=== PATIENT | female | born 1955 | race Hispanic/Latino ===

== ENCOUNTER 2017-01-09 15:11 | Inpatient (IN) | payer MEDICAID ==
--- NOTE | 2017-01-09 16:03 | ED PDOC ---
Arrival/HPI - General Chief Complaint: Lower Extremity Problem/Injury Time Seen by Provider: 01/09/17 15:18 Historian: Patient - History of Present Illness Time/Duration: Other (This morning) Symptom Onset: Gradual Symptom Course: Worsening Quality: Aching Severity Level: Moderate Activities at Onset: Rest Associated Symptoms (Text): 01/09/17 16:00 Patient complains of bilateral foot pain and difficulty ambulating since this morning. She denies injury or trauma. She lives at home alone. She does not have a home health aide. Mentally challenged. She denies chest pain palpitations or dyspnea. No abdominal pain nausea or vomiting. She is unable to ambulate. Past Medical History - Infectious Disease Hx of Infectious Diseases: None - Cardiac Hx Hypertension: Yes - Neurological Hx Vertigo: Yes - Psychiatric Hx Substance Use: No - Past Surgical History Past Surgical History: No Previous - Surgical History Hx Tonsillectomy: Yes - Anesthesia Hx Anesthesia: Yes Hx Anesthesia Reactions: No Hx Malignant Hyperthermia: No Family/Social History - Physician Review Nursing Documentation Reviewed: Yes Family/Social History: Unknown Family HX Smoking Status: Never Smoked Hx Alcohol Use: No Hx Substance Use: No Hx Substance Use Treatment: No Allergies/Home Meds Allergies/Adverse Reactions: Allergies egg Allergy (Verified 01/09/17 15:13) RASH Home Medications: Home Meds Medication Instructions Recorded Confirmed Amitriptyline [Elavil] 2 tab PO HS 05/25/16 05/25/16 Meclizine HCl [Motion Sickness 25 mg PO TID 05/25/16 05/25/16 Relief] Metoprolol Tartrate [Lopressor] 25 mg PO BID 05/25/16 05/25/16 Review of Systems - Physician Review All systems were reviewed & negative as marked: Yes - Review of Systems Constitutional: Fatigue. absent: Fevers Respiratory: absent: SOB, Cough, Wheezing Cardiovascular: absent: Chest Pain, Palpitations, Syncope Gastrointestinal: absent: Abdominal Pain, Diarrhea, Vomiting Genitourinary Female: absent: Dysuria, Frequency, Hematuria Neurological: absent: Headache, Dizziness Physical Exam Vital Signs Temp Pulse Resp BP Pulse Ox 01/09/17 16:50 106 H 18 121/66 98 01/09/17 15:24 99.0 F 121 H 18 159/112 H 100 Temperature: Afebrile Blood Pressure: Normal Pulse: Regular Respiratory Rate: Normal Appearance: Positive for: Well-Appearing, Non-Toxic, Uncomfortable Pain Distress: Mild Mental Status: Positive for: Alert and Oriented X 3 - Systems Exam Head: Present: Atraumatic, Normocephalic Pupils: Present: PERRL Extroacular Muscles: Present: EOMI Conjunctiva: Present: Normal Mouth: Present: Dry Pharnyx: No: ERYTHEMA, EXUDATE, TONSILS ENLARGED Neck: Present: Normal Range of Motion Respiratory/Chest: Present: Clear to Auscultation, Good Air Exchange, Decreased Breath Sounds. No: Respiratory Distress, Accessory Muscle Use Cardiovascular: Present: Regular Rate and Rhythm, Tachycardic Abdomen: Present: Normal Bowel Sounds. No: Tenderness, Distention, Peritoneal Signs, Rebound, Guarding Back: Present: Normal Inspection. No: CVA Tenderness, Midline Tenderness, Paraspinal Tenderness Upper Extremity: Present: Normal Inspection. No: Cyanosis, Edema Lower Extremity: Present: Normal Inspection, NORMAL PULSES, Tenderness, Neurovascularly Intact, Other (Bilateral plantar surface feet tenderness with no swelling or skin changes). No: Edema, CALF TENDERNESS, Cyanosis, Normal ROM , Swelling, Erythema, Deformity Neurological: Present: GCS=15, CN II-XII Intact, Speech Normal, Motor Func Grossly Intact Skin: Present: Warm, Dry, Normal Color, Other (Cracked dry skin). No: Rashes Psychiatric: Present: Alert, Oriented x 3, Normal Insight, Normal Concentration Medical Decision Making ED Course and Treatment: 01/09/17 16:03 EKG shows sinus tachycardia rate approximately 115 with a left bundle branch block and no old available for comparison 01/09/17 17:05 Discussed with , who accepts to his service. Resident has been called. - Lab Interpretations Lab Results: 01/09/17 15:30 01/09/17 16:20 Lab Results 01/09/17 16:20: Sodium 133, Potassium 4.0, Chloride 100, Carbon Dioxide 18 L, Anion Gap 18, BUN 30 H, Creatinine 1.7 H, Est GFR ( Amer) 37, Est GFR ( Non-Af Amer) 30, Random Glucose 216 H, Calcium 8.9, Total Bilirubin 1.6 H, AST 30, ALT 32, Alkaline Phosphatase 131 H, Lactate Dehydrogenase 537, Total Creatine Kinase 85, Troponin I 0.14 H*, Total Protein 7.9, Albumin 3.9, Globulin 4.0, Albumin/Globulin Ratio 1.0 L 01/09/17 15:30: PT 15.1 H, INR 1.38 H, APTT 34.3 01/09/17 15:30: WBC 10.3, RBC 4.74, Hgb 14.6, Hct 42.1, MCV 88.8, MCH 30.8, MCHC 34.7, RDW 13.9, Plt Count 283, MPV 10.5, Gran % 77.7 H, Lymph % (Auto) 11.9 L, [place] % (Auto) 9.9 H, Eos % (Auto) 0.3 L, Baso % (Auto) 0.2, Gran # 8.03 H, Lymph # 1.2, [place] # 1.0 H, Eos # 0.0, Baso # 0.02 - RAD Interpretation Radiology Orders: 01/09/17 15:36 FOOT LEFT 3 VIEWS ROUTINE [RAD] Stat FOOT RIGHT 3 VIEWS ROUTINE [RAD] Stat 01/09/17 15:37 CHEST TWO VIEWS (PA/LAT) [RAD] Stat - Medication Orders Current Medication Orders: Discontinued Medications Aspirin (Aspirin Chewable) 324 mg PO ONCE ONE Stop: 01/09/17 17:00 Disposition/Present on Arrival - Present on Arrival Any Indicators Present on Arrival: No History of DVT/PE: No History of Uncontrolled Diabetes: No Urinary Catheter: No History of Decub. Ulcer: No History Surgical Site Infection Following: None - Disposition Have Diagnosis and Disposition been Completed?: Yes Diagnosis: Elevated troponin, Unable to ambulate, Renal failure, Dehydration, Hyperglycemia Disposition: HOSPITALIZED Disposition Time: 17:00 Patient Plan: Admission, Telemetry Patient Problems: Current Active Problems Problem Status Onset Dehydration Acute Elevated troponin Acute Hyperglycemia Acute Renal failure Acute Unable to ambulate Acute Condition: SERIOUS Referrals: Jean-Paul Barber MD [Primary Care Provider] - Follow up with primary Forms: [employer] [facility] (Bulgarian)
[2017-01-09 16:07] LABS: BASO # 0.02 K/mm3 (0.0-2.0); BASO % 0.2 % (0.0-3.0); EOS % 0.3 % (1.5-5.0); GRAN # 8.03 (1.4-6.5); GRAN % 77.7 % (50.0-68.0); HEMATOCRIT 42.1 % (36.0-48.0); LYMPH # 1.2 (1.2-3.4); LYMPH % 11.9 % (22.0-35.0); MEAN CELL VOLUME 88.8 fl (80.0-105.0); MEAN CORPUSCULAR HEMOGLOBIN 30.8 pg (25.0-35.0); MEAN CORPUSCULAR HGB CONC 34.7 g/dl (31.0-37.0); MEAN PLATELET VOLUME 10.5 fl (7.0-11.0); MONO % 9.9 % (1.0-6.0); RED CELL DISTRIBUTION WIDTH 13.9 % (11.5-14.5); WHITE BLOOD COUNT 10.3 10^3/ul (4.5-11.0)
--- NOTE | 2017-01-09 16:22 | RAD ---
HISTORY: weakness COMPARISON: No prior. TECHNIQUE: Chest PA and lateral FINDINGS: LUNGS: No active pulmonary disease. PLEURA: No significant pleural effusion identified. No pneumothorax apparent. CARDIOVASCULAR: Normal. OSSEOUS STRUCTURES: No significant abnormalities. VISUALIZED UPPER ABDOMEN: Normal. OTHER FINDINGS: None. IMPRESSION: No active disease.
--- NOTE | 2017-01-09 16:24 | RAD ---
PROCEDURE: Right Foot Radiographs. HISTORY: pain COMPARISON: None. FINDINGS: BONES: Normal. No fracture. JOINTS: Normal. SOFT TISSUES: Normal. OTHER FINDINGS: None. IMPRESSION: Normal right foot radiographs.
--- NOTE | 2017-01-09 16:25 | RAD ---
PROCEDURE: Left Foot Radiographs. HISTORY: pain COMPARISON: None. FINDINGS: BONES: Normal. No fracture. JOINTS: Normal. SOFT TISSUES: Normal. OTHER FINDINGS: None. IMPRESSION: Normal left foot radiographs.
[2017-01-09 16:30] LABS: INR 1.38 (0.93-1.08); PARTIAL THROMBOPLASTIN TIME 34.3 Seconds (25.1-36.5)
[2017-01-09 16:37] LABS: BILIRUBIN,TOTAL 1.6 mg/dL (0.2-1.3); CALCIUM 8.9 mg/dL (8.4-10.5); TOTAL PROTEIN 7.9 g/dL (5.8-8.3)
[2017-01-09 16:53] LABS: TROPONIN I 0.14 ng/mL
[2017-01-09] MEDS: Heparin25000 units/250ml 1/2NS 25,000 UNITS/250 ML BAG IV SCH (18:49)
[2017-01-09] MEDS: Sodium Chloride 0.9% 1,000 ML IV SCH (18:56)
--- NOTE | 2017-01-09 19:45 | CARD ---
APPROVED REPORT EKG Measurement Heart [id number] <Conclusion> Sinus tachycardia Nonspecific intraventricular block Possible Inferior infarct, age undetermined Anterolateral infarct, age undetermined Abnormal ECG
--- NOTE | 2017-01-09 21:02 | US ---
HISTORY: Leg pain and swelling. Evaluate for DVT PHYSICIAN(S): Gabino Saleem MD. TECHNIQUE: Duplex sonography and color-flow Doppler with graded compression were used to evaluate the deep venous systems of both lower extremities. The exam is somewhat limited by body habitus FINDINGS: The visualized deep venous systems of both lower extremities are sonographically normal and compressible. Normal wave forms and augmentation are seen. There is no sonographic evidence for deep venous thrombosis in the visualized segments of both lower extremities. IMPRESSION: No sonographic evidence for deep venous thrombosis in the visualized segments of both lower extremities.
--- NOTE | 2017-01-09 22:22 | CP.PCM.HP ---
<Minerva Son - Last Filed: 01/09/17 23:13> History of Present Illness - History of Present Illness History of Present Illness: PGY-2 h&p 61 yo female ith PMH of HTN, vertigo present with bilateral foot pain and difficulty ambulating since this morning. Patient states that the foot pain began last week and has become progressively worse. She states that hen she stands the pain radiates up to her knee, describing the pain as "someone stomping on them:. She reports that it feels like her feet are going to give out. She denies recent injury or trauma. Paient also reports SOB. She states that it has been occurring for past few month and is worse with excretion. 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 She denies chest pain, lower extremity edema or palpitations. She also reports feeling congested starting this morning with some throat discomfort. She endorses chronic dry cough. No fever, chills abdominal pain nausea or vomiting. PMH: HTN, vertigo PSH: tonsillectomy social history: denies smoking, alcohol use, illicit drug use famiyl history: father- dementia, mother0 heart disease, brother cardiac stents allergy: egg home meds: amitriptyline, meclizine, lopressor Present on Admission - Present on Admission Any Indicators Present on Admission: No Review of Systems - Constitutional Constitutional: absent: Chills, Fever, Headache, Weakness - EENT Eyes: absent: Change in Vision Nose/Mouth/Throat: Nasal Congestion, Sore Throat - Cardiovascular Cardiovascular: absent: Chest Pain, Diaphoresis, Dyspnea, Leg Edema, Palpitations - Respiratory Respiratory: Cough, Dyspnea, Dyspnea on Exertion. absent: Hemoptysis, Wheezing - Gastrointestinal Gastrointestinal: absent: Abdominal Pain, Constipation, Diarrhea, Nausea, Vomiting - Genitourinary Genitourinary: absent: Difficulty Urinating, Dysuria, Hematuria - Musculoskeletal Musculoskeletal: absent: Back Pain, Numbness, Tingling - Integumentary Integumentary: Rash. absent: Pruritus, Skin Ulcer, Wounds - Neurological Neurological: absent: Dizziness, Focal Weakness, Syncope, Tingling, Vertigo - Hematologic/Lymphatic Hematologic: absent: Easy Bleeding, Easy Bruising Past Patient History - Infectious Disease Hx of Infectious Diseases: None - Past Social History Smoking Status: Never Smoked - CARDIAC Hx Hypertension: Yes - NEUROLOGICAL Hx Vertigo: Yes - PSYCHIATRIC Hx Substance Use: No - SURGICAL HISTORY Hx Tonsillectomy: Yes - ANESTHESIA Hx Anesthesia: Yes Hx Anesthesia Reactions: No Hx Malignant Hyperthermia: No Meds Allergies/Adverse Reactions: Allergies Allergy/AdvReac Type Severity Reaction Status Date / Time No Known Allergies Allergy Verified 01/17/17 13:02 Physical Exam - Constitutional Appears: No Acute Distress - Head Exam Head Exam: ATRAUMATIC, NORMAL INSPECTION, NORMOCEPHALIC - Eye Exam Eye Exam: EOMI - ENT Exam ENT Exam: Mucous Membranes Moist - Respiratory Exam Respiratory Exam: Clear to Auscultation Bilateral, NORMAL BREATHING PATTERN. absent: Rhonchi, Wheezes, Respiratory Distress - Cardiovascular Exam Cardiovascular Exam: Tachycardia, REGULAR RHYTHM. absent: Systolic Murmur - GI/Abdominal Exam GI & Abdominal Exam: Normal Bowel Sounds, Soft. absent: Distended, Firm, Guarding, Tenderness - Extremities Exam Extremities exam: Positive for: tenderness Additional comments: erythema lower extremity R>L - Neurological Exam Neurological exam: Alert, Oriented x3 - Skin Skin Exam: Dry, Intact, Normal Color, Warm Additional comments: psoriasis of scale Results - Vital Signs Recent Vital Signs: Last Vital Signs Temp 99.0 F 01/09/17 15:24 Pulse 112 H 01/09/17 18:48 Resp 18 01/09/17 16:50 BP 125/99 H 01/09/17 18:48 Pulse Ox 98 01/09/17 16:50 - Labs Result Diagrams: 01/09/17 15:30 01/09/17 16:20 Assessment & Plan - Assessment and Plan (Free Text) Assessment: 61 yo female ith PMH of HTN, vertigo present with bilateral foot pain found to have abnormal EKG with elevated troponin. Plan: 1. abnormal EKG with elevated troponin - stress test on 05/2016 was wquivical, with fixed anteroseptal defect - previous echo on 02/08/2016 showed EF of 32% and severe LV dysfunction - EKG in ED showed LBBB, no previous EKG for comparison - troponin in ED elevated at 0.14 - cardiology consulted - trend trops - repeat EKG in AM - will start heparin drip to treat for possible new LBBB - Continue lopressor - asa - hold jayla inhibitor due to renal function 2. Bilateral foot pain - xray of left foot negative, xray fo right foot negative - lower extremity US 3. MORGAN - creatinine elevated from baseline, previously 1.2, currently 1.7 - start IVF, NS @60, willmoitor for fluid overload due to low EF - nephrology consulted case reviewed and discussed with attending <Jean-Paul Barber - Last Filed: 01/18/17 18:07> Results - Vital Signs Recent Vital Signs: Last Vital Signs Temp 98.5 F 01/17/17 08:00 Pulse 85 01/17/17 09:16 Resp 20 01/17/17 08:00 BP 149/81 01/17/17 09:16 Pulse Ox 96 01/17/17 08:00 - Labs Result Diagrams: 01/17/17 06:00 01/17/17 06:00 Attending/Attestation - Attestation I have personally seen and examined this patient.: Yes I have fully participated in the care of the patient.: Yes I have reviewed all pertinent clinical information: Yes Notes (Text): 01/18/17 18:07 Medical record note made by the resident after discussion with my direction and input after the patient was personally seen and examined by me. I have reviewed the chart and agree that the record accurately reflects by personal performance of the history, physical exam, data review, and medical decision-making, in the course for the patient. I have also personally directed the plan of care.
[2017-01-09] MEDS ORDERED: Pneumococcal 23-Valent Vaccine IM ONE (22:47)
[2017-01-10 06:02] LABS: BASO # 0.02 K/mm3 (0.0-2.0); BASO % 0.3 % (0.0-3.0); EOS # 0.2 (0.0-0.7); EOS % 2.2 % (1.5-5.0); GRAN # 4.87 (1.4-6.5); GRAN % 66.6 % (50.0-68.0); HEMATOCRIT 38.8 % (36.0-48.0); LYMPH # 1.6 (1.2-3.4); LYMPH % 22.5 % (22.0-35.0); MEAN CELL VOLUME 88.6 fl (80.0-105.0); MEAN CORPUSCULAR HEMOGLOBIN 30.1 pg (25.0-35.0); MEAN PLATELET VOLUME 10.4 fl (7.0-11.0); MONO # 0.6 (0.1-0.6); MONO % 8.4 % (1.0-6.0); RED CELL DISTRIBUTION WIDTH 14.1 % (11.5-14.5); WHITE BLOOD COUNT 7.3 10^3/ul (4.5-11.0)
[2017-01-10 07:05] LABS: TROPONIN I 0.12 ng/mL
[2017-01-10 07:26] LABS: ALB/GLOB RATIO 0.9 (1.1-1.8); BILIRUBIN,TOTAL 1.1 mg/dL (0.2-1.3); CALCIUM 8.5 mg/dL (8.4-10.5); MAGNESIUM 2.2 mg/dL (1.7-2.2); PHOSPHOROUS 3.4 mg/dL (2.5-4.5); POTASSIUM 3.5 mmol/L (3.6-5.0); TOTAL PROTEIN 7.3 g/dL (5.8-8.3)
[2017-01-10] MEDS: Heparin25000 units/250ml 1/2NS 25,000 UNITS/250 ML BAG IV SCH ×2 (08:14→12:47)
--- NOTE | 2017-01-10 09:16 | CON ---
CARDIOLOGY CONSULTATION DATE: 01/10/2017 HISTORY: The patient is a 61-year-old woman, who presents with lower extremity leg pain as well as general malaise. She denies chest pain; denies shortness of breath. The patient's past medical history is notable for a learning disability; however, the patient is functioning independently at home. She takes metoprolol at home and is on Elavil for depression. In the emergency room, the patient was found to have elevated troponins. EKG shows intraventricular conduction defect with sinus tachycardia. SOCIAL HISTORY: The patient does not smoke. REVIEW OF SYSTEMS: A 14-point review of systems is reviewed in detail. No cardiac symptomatology was elicited. PHYSICAL EXAMINATION: VITAL SIGNS: Blood pressure is 121/70, the heart rate is in the 90s, sinus tachycardia. NECK: Negative JVD. LUNGS: Decreased breath sounds bilaterally. HEART: Reveal S1, S2. EXTREMITIES: Without edema. EKG shows sinus tachycardia with intraventricular conduction defect. LABORATORY DATA: Hemoglobin is 13.2. Chemistries, troponin 0.14 and 0.12 with a BUN and creatinine of 15 and 1.6. IMPRESSION: 1. Non-ST elevation myocardial infarction. 2. High probability for coronary artery disease. 3. Hypertension. 4. Renal insufficiency. 5. Lower extremity pain. PLAN: The patient started on aspirin, beta-blockers and IV heparin. We will obtain an echocardiogram today. In addition, we will obtain Doppler of the lower extremities. Gabino Terry MD
[2017-01-10 09:37] LABS: URINE BILIRUBIN SMALL (NEGATIVE); URINE BLOOD SMALL (NEGATIVE); URINE GLUCOSE (UA) NEGATIVE (NEGATIVE); URINE KETONE TRACE mg/dL (NEGATIVE); URINE LEUKOCYTE ESTERASE NEGATIVE Leu/uL (NEGATIVE); URINE PROTEIN 30 mg/dL (<30 mg/dL)
[2017-01-10] MEDS ORDERED: Potassium Chloride 40 mEq/30 ml LIQ UD PO STA (09:38)
[2017-01-10 09:39] LABS: URINE APPEARANCE SL CLOUDY (CLEAR)
[2017-01-10 09:41] LABS: URINE COLOR DARK YELLOW (YELLOW)
[2017-01-10 09:42] LABS: URINE AMORPHOUS SEDIMENT FEW; URINE BACTERIA MANY (NEG); URINE EPITHELIAL CELLS MANY /hpf (0-5)
[2017-01-10] MEDS: Sodium Chloride 0.9% 1,000 ML IV SCH (11:55)
--- NOTE | 2017-01-10 13:37 | US ---
PROCEDURE: Ultrasound of the Kidneys HISTORY: MORGAN COMPARISON: None available. TECHNIQUE: Sonogram of the kidneys. FINDINGS: RIGHT KIDNEY: Measures: 11.3 x 4.3 x 4.8 cm. Normal in size, contour and echogenicity. No stone, solid mass lesion or hydronephrosis visualized. LEFT KIDNEY: Measures: 11.5 x 4.3 x 4.7 cm. Normal in size, contour and echogenicity. No stone, solid mass lesion or hydronephrosis visualized. OTHER FINDINGS: None. IMPRESSION: Unremarkable renal sonogram.
--- NOTE | 2017-01-10 15:08 | CP.PCM.PN ---
<Ricardo Blanco - Last Filed: 01/10/17 15:04> Subjective - Date & Time of Evaluation Date of Evaluation: 01/10/17 Time of Evaluation: 10:00 - Subjective Subjective: Medicine Progress note: Pt seen and examined at bedside. No acute events overnight. Pt still c/o of some sob. She still complain of b/l lower ext pain. No other complaints. Denies any cp, or palpitations. 12 point ROS reviewed and negative other than stated above. Objective - Vital Signs/Intake and Output Vital Signs (last 24 hours): Temp Pulse Resp BP Pulse Ox 99.2 F 96 H 20 143/75 99 01/10/17 12:00 01/10/17 12:00 01/10/17 12:00 01/10/17 12:00 01/10/17 06:00 Intake and Output: 01/10/17 01/10/17 06:59 18:59 Intake Total 340 1264 Output Total 660 Balance -320 1264 - Medications Medications: Current Medications Aspirin (Ecotrin) 81 mg PO DAILY [facility] Last Admin: 01/10/17 09:29 Dose: 81 mg Famotidine (Pepcid) 20 mg PO BID [facility] Last Admin: 01/10/17 09:29 Dose: 20 mg Heparin Sodium/Sodium Chloride (Heparin 14811 Units/250ml 1/2 Normal Saline) 25 ,000 units in 250 mls @ 13.227 mls/hr IV .[id number] [facility]; 12 UNITS/KG/HR PRN Reason: Protocol Last Admin: 01/10/17 12:47 Dose: 15.78 units/kg/hr, 17.4 mls/hr Sodium Chloride (Sodium Chloride 0.9%) 1,000 mls @ 60 mls/hr IV .[id number] [facility] Last Admin: 01/10/17 11:55 Dose: 60 mls/hr Meclizine HCl (Antivert) 25 mg PO TID PRN PRN Reason: Dizziness Metoprolol Tartrate (Lopressor) 25 mg PO BID [facility] Last Admin: 01/10/17 09:29 Dose: 25 mg - Labs Labs: 01/10/17 05:30 01/10/17 05:30 PT 15.1 SECONDS (9.4-12.5) H 01/09/17 15:30 INR 1.38 (0.93-1.08) H 01/09/17 15:30 APTT 39.6 Seconds (25.1-36.5) H 01/10/17 06:50 - Constitutional Appears: No Acute Distress - Head Exam Head Exam: ATRAUMATIC - Eye Exam Eye Exam: EOMI, PERRL Pupil Exam: PERRL - ENT Exam ENT Exam: Mucous Membranes Moist - Respiratory Exam Respiratory Exam: Clear to Ausculation Bilateral. absent: Chest Wall Tenderness , Wheezes - Cardiovascular Exam Cardiovascular Exam: REGULAR RHYTHM, RRR, +S1, +S2 - GI/Abdominal Exam GI & Abdominal Exam: Soft. absent: Tenderness - Extremities Exam Extremities Exam: absent: Calf Tenderness - Neurological Exam Neurological Exam: Alert, Awake, Oriented x3 - Psychiatric Exam Psychiatric exam: Normal Affect, Normal Mood - Skin Skin Exam: Dry, Intact Assessment and Plan - Assessment and Plan (Free Text) Assessment: 61 yo female with PMH of HTN, vertigo present with bilateral foot pain found to have abnormal EKG changes and NSTEMI. 1. NSTEMI - stress test on 05/2016 was equivocal, with fixed anteroseptal defect - previous echo on 02/08/2016 showed EF of 32% and severe LV dysfunction - F/u echo today - troponin 0.14 --> .12 - cardiology consulted for recs - repeat EKG in AM - Cont heparin drip - Continue lopressor, asa - hold jayla inhibitor due to renal function 2. Bilateral foot pain - xray of left foot negative, xray right foot negative - lower extremity US - negative 3. MORGAN - creatinine 1.6 - start IVF, NS @60 - nephrology consulted for recs - will follow up work up - hold jayla inhibitor due to renal function 4. Hypokalemia - K of 3.5 - KCl 40meq x 1 - Cont to monitor 5. GI/DVT ppx - Heparin and pepcid Pt was seen and plan was reviewed in detail with Dr Barber. <Jean-Paul Barber - Last Filed: 01/18/17 18:09> Objective - Vital Signs/Intake and Output Vital Signs (last 24 hours): Temp Pulse Resp BP Pulse Ox 98.5 F 85 20 149/81 96 01/17/17 08:00 01/17/17 09:16 01/17/17 08:00 01/17/17 09:16 01/17/17 08:00 - Labs Labs: 01/17/17 06:00 01/17/17 06:00 PT 15.1 SECONDS (9.4-12.5) H 01/09/17 15:30 INR 1.38 (0.93-1.08) H 01/09/17 15:30 APTT 72.5 Seconds (25.1-36.5) H 01/11/17 04:00 Attending/Attestation - Attestation I have personally seen and examined this patient.: Yes I have fully participated in the care of the patient.: Yes I have reviewed all pertinent clinical information, including history, physical exam and plan: Yes Notes (Text): 01/18/17 18:09 Medical record note made by the resident after discussion with my direction and input after the patient was personally seen and examined by me. I have reviewed the chart and agree that the record accurately reflects by personal performance of the history, physical exam, data review, and medical decision-making, in the course for the patient. I have also personally directed the plan of care.
--- NOTE | 2017-01-10 15:15 | CP.PCM.CON ---
History of Present Illness - History of Present Illness History of Present Illness: Initial Nephrology Consultation: Assessment: Stable Acute Kidney Injury (N17.9) versus progression of underlying CKD 3 ? due to HTN or more likely cardio-renal syndrome Hypertensive Chronic Kidney Disease (I12.9) Chronic Kidney Disease (N18.3) Stage 3 possibly due to HTN/cardio-renal CHF systolic, HTN (I12.9), obesity herpetic sores on lips Plan No acute need for renal replacement therapy at this time. Hypertension control with meds as ordered. Patient not on ACEI/ARB but may consider soon if renal function stable at this range Monitor Input/Output, daily weights and renal function with basic metabolic panel cautious with IVF since she has CHF and elevated BNP now. has symptoms of SOB despite clear CXR, follow echo results. cardiology following may need consideration for diuresis if pt need coronary angiogram, she will be at increased risk of contrast induced nephropathy. will give n-acetylcystein 1200 mg bid x 4 doses in that case Check urine analysis, spot protein/creatinine and albumin/creatinine ratio, renal sonogram. Urine Na, Creat. Check for 25-OH vitamin D, iPTH will repeat clean catch mid stream UA and urine cx Dose meds/antibiotics for reduced GFR. Avoid fleets enema/magnesium based laxatives. Avoid nephrotoxins/NSAIDs/ iodinated contrast (unless needed emergently) Glycemic control Further work up/management as per primary team Thanks for allowing me to participate in care of your patient. Will follow patient with you. Please call if any Qs Dr Henry Luevano Office: [phone] Chief Complaint; leg pains HPI: Pt is a 61 F with hx of hypertension (many years), chronic severe systolic CHF, depression presented with complaints of leg pains and SOB x 1 week. renal consulted for elevated creat Denies chest pain, palpitation, c/o shortness of breath, denies leg swelling but c/o pain Denies blood or bubbles in urine Denies OTC/herbal meds or NSAIDs No recent iodinated contrast exposure. No obvious episodes of low BP. ROS: Constitutional Symptoms: Denies fever. No chills. No Recent Weight Changes Eyes: denies change in vision, denies watery eyes, denies double vision Ears/Nose/Mouth/Throat: Denies Abnormal Taste. No Bad breath no Bad Taste. reports cold sores over lips Cardiovascular: No chest pain. No palpitations. Pulmonary: c/o shortness of breath no cough. Gastrointestinal: denies abdominal pain No nausea. No vomiting. Denies change in bowel habits. Denies Bleeding Genitourinary: No Change in force of strain when urinating. No increase in urinary frequency. No pain while urinating. Denies blood in urine. Neurological: Denies headaches. No dizziness. Denies loss of balance. Denies weakness, denies tingling/numbness Dermatological: No Rash or Bruising or ulcers. Psychiatric: Denies Anxiety. No depression. Denies hallucinations. Rheumatological: No joint pain. Denies Joint swelling. c/o leg pains Endocrine: c/o tiredness/Fatigue denies Heat/Cold Intolerance. All other negative Physical Examination: General Appearance: Comfortable, has mild tachypnoea on talking, co-operative . obese Vitals reviewed and noted as below Head; Atraumatic, normocephalic ENT: no ulcers no thrush. Tongue is midline. Oropharynx: no rash or ulcers. has cold sores over lips EYES: Pupils are equal, round and reactive to light accommodation. Eye muscles and extraocular movement intact. Sclera is anicteric. Neck; supple no lymphadenopathy, no thyromegaly or bruit Lungs: Normal respiratory rate/effort. Breath sounds bilateral reduced at bases Heart: Normal rate. s1s2 normal. No rub or gallop. Extremities: no to trace edema. No varicose veins Neurological: Patient is alert, awake and oriented to person, place and time. No focal deficit. Strength bilateral appropriate and equal Skin: Warm and dry. Normal turgor. No rash. Palpitation: Normal elasticity for age Abdomen: Abdomen is soft. Bowel sounds +. There is no abdominal tenderness, no guarding/rigidity no organomegaly Psych: normal insight and normal affect/mood MSK: no joint tenderness or swelling. Digits and nails normal, no deformity : kidney or bladder not palpable Labs/imaging reviewed. Past medical history, past surgical history, family history, social history, allergy reviewed and noted as below Family hx: no hx of CKD. Rest non-contributory renal sono: unremarkable FeNa <1% Past Patient History - Infectious Disease Hx of Infectious Diseases: None - Past Social History Smoking Status: Never Smoked - CARDIAC Hx Hypertension: Yes - NEUROLOGICAL Hx Vertigo: Yes - INTEGUMENTARY Hx Psoriasis: Yes (lower back dry red skin "psorisis" stated pt) Other/Comment: dry cracked skin to lips, dry skin both feet - MUSCULOSKELETAL/RHEUMATOLOGICAL Hx Falls: No - PSYCHIATRIC Hx Substance Use: No - SURGICAL HISTORY Hx Tonsillectomy: Yes - ANESTHESIA Hx Anesthesia: Yes Hx Anesthesia Reactions: No Hx Malignant Hyperthermia: No Meds Allergies/Adverse Reactions: Allergies Allergy/AdvReac Type Severity Reaction Status Date / Time egg Allergy RASH Verified 01/09/17 15:13 - Medications Medications: Current Medications Aspirin (Ecotrin) 81 mg PO DAILY [facility] Last Admin: 01/10/17 09:29 Dose: 81 mg Famotidine (Pepcid) 20 mg PO BID [facility] Last Admin: 01/10/17 09:29 Dose: 20 mg Heparin Sodium/Sodium Chloride (Heparin 11178 Units/250ml 1/2 Normal Saline) 25 ,000 units in 250 mls @ 13.227 mls/hr IV .[id number] [facility]; 12 UNITS/KG/HR PRN Reason: Protocol Last Admin: 01/10/17 12:47 Dose: 15.78 units/kg/hr, 17.4 mls/hr Sodium Chloride (Sodium Chloride 0.9%) 1,000 mls @ 60 mls/hr IV .[id number] [facility] Last Admin: 01/10/17 11:55 Dose: 60 mls/hr Meclizine HCl (Antivert) 25 mg PO TID PRN PRN Reason: Dizziness Metoprolol Tartrate (Lopressor) 25 mg PO BID [facility] Last Admin: 01/10/17 09:29 Dose: 25 mg Results - Vital Signs Recent Vital Signs: Last Vital Signs Temp 99.2 F 01/10/17 12:00 Pulse 96 H 01/10/17 12:00 Resp 20 01/10/17 12:00 BP 143/75 01/10/17 12:00 Pulse Ox 99 01/10/17 06:00 - Labs Result Diagrams: 01/10/17 05:30 01/10/17 05:30 Labs: Laboratory Results - last 24 hr 01/10/17 01/10/17 01/10/17 01:05 05:30 05:30 WBC 7.3 D RBC 4.38 Hgb 13.2 Hct 38.8 MCV 88.6 MCH 30.1 MCHC 34.0 RDW 14.1 Plt Count 263 MPV 10.4 Gran % 66.6 Lymph % (Auto) 22.5 Kidder % (Auto) 8.4 H Eos % (Auto) 2.2 Baso % (Auto) 0.3 Gran # 4.87 Lymph # 1.6 Kidder # 0.6 Eos # 0.2 Baso # 0.02 APTT 45.8 H Sodium 136 Potassium 3.5 L Chloride 102 Carbon Dioxide 22 Anion Gap 15 BUN 32 H Creatinine 1.6 H Est GFR ( Amer) 39 Est GFR (Non-Af Amer) 33 Random Glucose 159 H Calcium 8.5 Phosphorus 3.4 Magnesium 2.2 Total Bilirubin 1.1 AST 26 ALT 26 Alkaline Phosphatase 114 Lactate Dehydrogenase 448 Total Creatine Kinase 63 Troponin I 0.12 NT-Pro-B Natriuret Pep Total Protein 7.3 Albumin 3.5 Globulin 3.8 Albumin/Globulin Ratio 0.9 L Urine Color Urine Appearance Urine pH Ur Specific [place] Urine Protein Urine Glucose (UA) Urine Ketones Urine Blood Urine Nitrate Urine Bilirubin Urine Urobilinogen Ur Leukocyte Esterase Urine RBC Urine WBC Ur Epithelial Cells Amorphous Sediment Urine Bacteria Coarse Granular Casts Urine Other Ur Random Creatinine Ur Random Sodium 01/10/17 01/10/17 01/10/17 06:50 07:50 09:23 WBC RBC Hgb Hct MCV MCH MCHC RDW Plt Count MPV Gran % Lymph % (Auto) Kidder % (Auto) Eos % (Auto) Baso % (Auto) Gran # Lymph # Kidder # Eos # Baso # APTT 39.6 H Sodium Potassium Chloride Carbon Dioxide Anion Gap BUN Creatinine Est GFR ( Amer) Est GFR (Non-Af Amer) Random Glucose Calcium Phosphorus Magnesium Total Bilirubin AST ALT Alkaline Phosphatase Lactate Dehydrogenase Total Creatine Kinase Troponin I NT-Pro-B Natriuret Pep 80200 H Total Protein Albumin Globulin Albumin/Globulin Ratio Urine Color Dark yellow Urine Appearance Sl cloudy Urine pH 6.0 Ur Specific [place] 1.020 Urine Protein 30 H Urine Glucose (UA) Negative Urine Ketones Trace H Urine Blood Small H Urine Nitrate Negative Urine Bilirubin Small H Urine Urobilinogen 2.0 H Ur Leukocyte Esterase Negative Urine RBC 10 - 15 Urine WBC 1 - 3 Ur Epithelial Cells Many Amorphous Sediment Few Urine Bacteria Many Coarse Granular Casts Trace H Urine Other Uyeast Ur Random Creatinine Ur Random Sodium 01/10/17 09:30 WBC RBC Hgb Hct MCV MCH MCHC RDW Plt Count MPV Gran % Lymph % (Auto) Kidder % (Auto) Eos % (Auto) Baso % (Auto) Gran # Lymph # Kidder # Eos # Baso # APTT Sodium Potassium Chloride Carbon Dioxide Anion Gap BUN Creatinine Est GFR ( Amer) Est GFR (Non-Af Amer) Random Glucose Calcium Phosphorus Magnesium Total Bilirubin AST ALT Alkaline Phosphatase Lactate Dehydrogenase Total Creatine Kinase Troponin I NT-Pro-B Natriuret Pep Total Protein Albumin Globulin Albumin/Globulin Ratio Urine Color Urine Appearance Urine pH Ur Specific [place] Urine Protein Urine Glucose (UA) Urine Ketones Urine Blood Urine Nitrate Urine Bilirubin Urine Urobilinogen Ur Leukocyte Esterase Urine RBC Urine WBC Ur Epithelial Cells Amorphous Sediment Urine Bacteria Coarse Granular Casts Urine Other Ur Random Creatinine 169 Ur Random Sodium 26
--- NOTE | 2017-01-10 20:38 | CARD ---
APPROVED REPORT EXAM: Two-dimensional and M-mode echocardiogram with Doppler and color Doppler. INDICATION NSTEMI 2D DIMENSIONS Left Atrium (2D)4.0 (1.6-4.0cm)IVSd0.0 (0.7-1.1cm) LVDd4.7 (3.9-5.9cm)PWd1.1 (0.7-1.1cm) LVDs4.0 (2.5-4.0cm)FS (%) 15.7 % LVEF (%)33.2 (>50%) M-Mode DIMENSIONS Aortic Root2.50 (2.2-3.7cm)Aortic Cusp Exc.1.60 (1.5-2.0cm) Aortic Valve AoV Peak Razjvffq466.0cm/Jaden Peak GR.9mmHgAI P 1/2 [id number] Mitral Valve MV E Feqdykjw23.3cm/sMV A Joyuujbr307.0cm/sE/A ratio0.8 TDI Lateral E' Peak V6.43cm/sMedial E' Peak V6.82cm/sE/Lateral E'15.0 E/Medial E'14.1 Pulmonary Valve PV Peak Rhteyczh48.9cm/sPV Peak Grad.3mmHg Tricuspid Valve TR Peak Ytxaewgb083by/sRAP HORIYFKI62toChVD Peak Gr.34mmHg [id number] LEFT VENTRICLE The left ventricle is normal size. There is normal left ventricular wall thickness. The systolic function is severely impaired. Anterior and septal hypokinesis Transmitral Doppler flow pattern is Grade I-abnormal relaxation pattern. Cannot rule out thrombus in left Ventricle. RIGHT VENTRICLE The right ventricle is normal size. There is normal right ventricular wall thickness. The right ventricular systolic function is normal. ATRIA The left atrium is mildly dilated. The right atrium size is normal. AORTIC VALVE The aortic valve is mildly sclerotic. There is mild aortic regurgitation. MITRAL VALVE Mitral regurgitation is moderate. TRICUSPID VALVE There is mild pulmonary hypertension. GREAT VESSELS The aortic root is normal in size. The IVC is normal in size and collapses >50% with inspiration. PERICARDIAL EFFUSION There is a small loculated anterior pericardial effusion. <Conclusion> The left ventricle is normal size. There is normal left ventricular wall thickness. The systolic function is severely impaired. Anterior and septal hypokinesis Transmitral Doppler flow pattern is Grade I-abnormal relaxation pattern. Cannot rule out thrombus in left Ventricle. There is mild aortic regurgitation. Mitral regurgitation is moderate. There is mild pulmonary hypertension.
[2017-01-10 21:10] LABS: TROPONIN I 0.06 ng/mL
--- NOTE | 2017-01-10 22:36 | US ---
HISTORY: Leg pain and swelling. Evaluate for DVT PHYSICIAN(S): Gabino Saleem MD. TECHNIQUE: Duplex sonography and color-flow Doppler with graded compression were used to evaluate the deep venous systems of both lower extremities. FINDINGS: The visualized deep venous systems of both lower extremities are sonographically normal and compressible. Normal wave forms and augmentation are seen. There is no sonographic evidence for deep venous thrombosis in the visualized segments of both lower extremities. There is a 1.2 x 4.7 cm fluid collection left popliteal fossa, consistent with a Steinberg's cyst IMPRESSION: No sonographic evidence for deep venous thrombosis in the visualized segments of both lower extremities.
--- NOTE | 2017-01-10 23:41 | CARD ---
APPROVED REPORT EKG Measurement Heart [id number] <Conclusion> Normal sinus rhythm Left bundle branch block Abnormal ECG
[2017-01-11] MEDS ORDERED: Heparin25000 units/250ml 1/2NS 25,000 UNITS/250 ML BAG IV SCH (04:30)
[2017-01-11] MEDS: Sodium Chloride 0.9% 1,000 ML IV SCH (04:32)
[2017-01-11 04:35] LABS: BASO # 0.02 K/mm3 (0.0-2.0); BASO % 0.3 % (0.0-3.0); EOS # 0.2 (0.0-0.7); EOS % 2.2 % (1.5-5.0); GRAN # 4.02 (1.4-6.5); HEMATOCRIT 36.4 % (36.0-48.0); LYMPH # 1.9 (1.2-3.4); LYMPH % 27.9 % (22.0-35.0); MEAN CELL VOLUME 90.1 fl (80.0-105.0); MEAN CORPUSCULAR HGB CONC 33.2 g/dl (31.0-37.0); MEAN PLATELET VOLUME 10.4 fl (7.0-11.0); MONO # 0.8 (0.1-0.6); MONO % 11.6 % (1.0-6.0); RED CELL DISTRIBUTION WIDTH 14.4 % (11.5-14.5); WHITE BLOOD COUNT 6.9 10^3/ul (4.5-11.0)
[2017-01-11 05:07] LABS: ALB/GLOB RATIO 0.9 (1.1-1.8); BILIRUBIN,TOTAL 0.9 mg/dL (0.2-1.3); CALCIUM 8.5 mg/dL (8.4-10.5)
[2017-01-11 05:27] LABS: TROPONIN I 0.17 ng/mL
--- NOTE | 2017-01-11 05:44 | CP.PCM.PCO ---
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 Cardiology is already consulted and patient being treated with heparin drip for NSTEMI. will ordered EKG STAT to r/o STEMI. 01/11/17 06:58 EKG reviewed and shows no significant acute changes from prior one. No intervention needed at this time; will continue treatment. Signed out to morning team who will continue management. Jewel Acevedo PGY1
--- NOTE | 2017-01-11 10:24 | CP.PCM.PN ---
Subjective - Date & Time of Evaluation Date of Evaluation: 01/11/17 Time of Evaluation: 08:00 - Subjective Subjective: Medicine Progress note: Pt seen and examined at bedside. No acute events overnight. Pt troponin was elevated to .17 this am. Will go for cardiac cath today. Denies any chest pain or sob currently. 12 point ROS reviewed and negative other than stated above. Objective - Vital Signs/Intake and Output Vital Signs (last 24 hours): Temp Pulse Resp BP Pulse Ox 97.6 F 94 H 20 130/78 99 01/11/17 06:00 01/11/17 09:19 01/11/17 06:00 01/11/17 09:19 01/11/17 06:00 Intake and Output: 01/11/17 01/11/17 06:59 18:59 Intake Total 1530 Output Total 575 Balance 955 - Medications Medications: Current Medications Amitriptyline HCl (Elavil) 50 mg PO HS [facility] Last Admin: 01/10/17 22:14 Dose: 50 mg Aspirin (Ecotrin) 81 mg PO DAILY [facility] Last Admin: 01/11/17 09:20 Dose: 81 mg Cholecalciferol (Vitamin D) 2,000 iu PO DAILY [facility] Last Admin: 01/11/17 09:20 Dose: 2,000 iu Meclizine HCl (Antivert) 25 mg PO TID PRN PRN Reason: Dizziness Metoprolol Tartrate (Lopressor) 25 mg PO BID [facility] Last Admin: 01/11/17 09:19 Dose: 25 mg - Labs Labs: 01/11/17 04:00 01/11/17 04:00 PT 15.1 SECONDS (9.4-12.5) H 01/09/17 15:30 INR 1.38 (0.93-1.08) H 01/09/17 15:30 APTT 72.5 Seconds (25.1-36.5) H 01/11/17 04:00 - Constitutional Appears: No Acute Distress - Head Exam Head Exam: ATRAUMATIC, NORMOCEPHALIC - Eye Exam Eye Exam: EOMI - ENT Exam ENT Exam: Mucous Membranes Moist, Normal Exam - Respiratory Exam Respiratory Exam: Clear to Ausculation Bilateral. absent: Wheezes - Cardiovascular Exam Cardiovascular Exam: REGULAR RHYTHM, RRR, +S1, +S2 - GI/Abdominal Exam GI & Abdominal Exam: Soft. absent: Tenderness - Extremities Exam Extremities Exam: absent: Calf Tenderness, Pedal Edema - Neurological Exam Neurological Exam: Alert, Awake, Oriented x3 - Psychiatric Exam Psychiatric exam: Normal Affect, Normal Mood - Skin Skin Exam: Dry Assessment and Plan - Assessment and Plan (Free Text) Assessment: 61 yo female with PMH of HTN, vertigo present with bilateral foot pain found to have abnormal EKG changes and NSTEMI. 1. NSTEMI - Troponin elevated to 0.17 - Will be scheduled for cardiac cath today - stress test on 05/2016 was equivocal, with fixed anteroseptal defect - previous echo on 02/08/2016 showed EF of 32% and severe LV dysfunction - F/u echos -severely impaired systolic dysfunction EF of 33% mod MRmild pulm HTN - troponin 0.14 --> .12 --> .17 - cardiology consulted for recs - Cardiac cath today - repeat EKG in AM - Continue lopressor, asa - hold jayla inhibitor due to renal function 2. Bilateral foot pain - xray of left foot negative, xray right foot negative - lower extremity US - negative 3. MORGAN - creatinine 1.6--> 1.2 today - Renal US was unremarkable - nephrology consulted for recs - cautious fluids, strict I/O, daily weight - will follow up work up - hold jayla inhibitor due to renal function 4. Hypokalemia - resolved 5. GI/DVT ppx - Heparin and pepcid Pt was seen and plan was reviewed in detail with Dr Barber.
--- NOTE | 2017-01-11 10:48 | CARD ---
APPROVED REPORT EKG Measurement Heart [id number] IA [id number] <Conclusion> Normal sinus rhythm Left bundle branch block Abnormal ECG
[2017-01-11] MEDS ORDERED: Lidocaine 2% Inj (20ml) ONE (10:52)
[2017-01-11] MEDS ORDERED: Midazolam 2 MG/2 ML VIAL ONE ×2 (10:53→12:00)
[2017-01-11] MEDS ORDERED: Iohexol 350mgl/ml 50 ML ONE (10:54)
[2017-01-11] MEDS ORDERED: Iodixanol 320 MG/ML 200 ML BOTTLE IV ONE (10:54)
[2017-01-11] MEDS ORDERED: Iodixanol 320 MG/ML 100 ML BOTTLE IV ONE (10:54)
--- NOTE | 2017-01-11 14:24 | CP.PCM.PN ---
Subjective - Date & Time of Evaluation Date of Evaluation: 01/11/17 Time of Evaluation: 14:21 - Subjective Subjective: Nephrology Consultation: Assessment: Stable Acute Kidney Injury (N17.9): improved Hypertensive Chronic Kidney Disease (I12.9) vitamin d def Chronic Kidney Disease (N18.3) Stage 3 possibly due to HTN/cardio-renal CHF systolic, HTN (I12.9), obesity herpetic sores on lips Plan No acute need for renal replacement therapy at this time. Hypertension control with meds as ordered. Patient not on ACEI/ARB but may consider soon considering CHF, if renal function stable post cath Monitor Input/Output, daily weights and renal function with basic metabolic panel will supplement with weekly vit D Dose meds/antibiotics for improved GFR. Avoid fleets enema/magnesium based laxatives. Avoid nephrotoxins/NSAIDs/ iodinated contrast (unless needed emergently) Glycemic control Further work up/management as per primary team Thanks for allowing me to participate in care of your patient. Will follow patient with you. Please call if any Qs Dr Henry Luevano Office: [phone] Chief Complaint; leg pains HPI: Pt is a 61 F with hx of hypertension (many years), chronic severe systolic CHF, depression presented with complaints of leg pains and SOB x 1 week. renal consulted for elevated creat ROS: Denies chest pain, palpitation, c/o shortness of breath, denies leg swelling but c/o pain for cardiac cath 01/11/17 Physical Examination: General Appearance: Comfortable, co-operative . obese Vitals reviewed and noted as below Head; Atraumatic, normocephalic ENT: no ulcers no thrush. Tongue is midline. Oropharynx: no rash or ulcers. has cold sores over lips EYES: Pupils are equal, round and reactive to light accommodation. Eye muscles and extraocular movement intact. Sclera is anicteric. Neck; supple no lymphadenopathy, no thyromegaly or bruit Lungs: Normal respiratory rate/effort. Breath sounds bilateral clear b/l equal Heart: Normal rate. s1s2 normal. No rub or gallop. Extremities: no to trace edema. No varicose veins Neurological: Patient is alert, awake and oriented to person, place and time. No focal deficit. Strength bilateral appropriate and equal Skin: Warm and dry. Normal turgor. No rash. Palpitation: Normal elasticity for age Abdomen: Abdomen is soft. Bowel sounds +. There is no abdominal tenderness, no guarding/rigidity no organomegaly Psych: normal insight and normal affect/mood MSK: no joint tenderness or swelling. Digits and nails normal, no deformity : kidney or bladder not palpable Labs/imaging reviewed. Past medical history, past surgical history, family history, social history, allergy reviewed and noted as below Family hx: no hx of CKD. Rest non-contributory renal sono: unremarkable FeNa <1% Objective - Vital Signs/Intake and Output Vital Signs (last 24 hours): Temp Pulse Resp BP Pulse Ox 97.6 F 94 H 20 130/78 99 01/11/17 06:00 01/11/17 09:19 01/11/17 06:00 01/11/17 09:19 01/11/17 10:00 Intake and Output: 01/11/17 01/11/17 06:59 18:59 Intake Total 1530 Output Total 575 Balance 955 - Medications Medications: Current Medications Amitriptyline HCl (Elavil) 50 mg PO HS [facility] Last Admin: 01/10/17 22:14 Dose: 50 mg Aspirin (Ecotrin) 81 mg PO DAILY [facility] Last Admin: 01/11/17 09:20 Dose: 81 mg Cholecalciferol (Vitamin D) 2,000 iu PO DAILY [facility] Last Admin: 01/11/17 09:20 Dose: 2,000 iu Meclizine HCl (Antivert) 25 mg PO TID PRN PRN Reason: Dizziness Metoprolol Tartrate (Lopressor) 25 mg PO BID [facility] Last Admin: 01/11/17 09:19 Dose: 25 mg - Labs Labs: 01/11/17 04:00 01/11/17 04:00 PT 15.1 SECONDS (9.4-12.5) H 01/09/17 15:30 INR 1.38 (0.93-1.08) H 01/09/17 15:30 APTT 72.5 Seconds (25.1-36.5) H 01/11/17 04:00
[2017-01-11] MEDS ORDERED: Ergocalciferol 50,000 Intl Units Cap PO SCH (14:30)
--- NOTE | 2017-01-11 15:08 | CARDCATH ---
PROCEDURE DATE: 01/11/2017 HISTORY: The patient is a 61-year-old woman who presents with shortness of breath and atypical chest pain. She is found to have mildly elevated troponins with plans to treat medically. The patient underwent an echocardiogram which showed an ejection fraction of 33%. There is mild pulmonary hypertension. Because of her cardiomyopathy and her re-elevation of her troponins, cardiac catheterization is recommended. PROCEDURE: Left heart catheterization with coronary aortography and left ventriculogram. The right femoral artery was cannulated with a 6-Sami sheath. There were no complications. The findings on catheterization revealed a left ventricle that is mildly hypokinetic. Ejection fraction could not be calculated. Her coronary anatomy revealed a right dominant circulation. The RCA revealed intimal irregularities without significant stenoses. The left main artery was unremarkable. The LAD and diagonal vessels revealed intimal irregularities without significant stenoses. The circumflex artery was free of significant disease. Angio-Seal was used to close the femoral artery site. The patient tolerated the procedure well. In summary, the procedure revealed unremarkable coronary arteries with mild LV hypokinesis consistent with a cardiomyopathy. Given these findings, the patient should be treated with an MONICA inhibitor. In addition, consideration for a VQ scan to rule out pulmonary embolism as an explanation for the borderline elevated troponins would be appropriate. ADDENDUM: I performed moderate sedation which included the presence of an independent trained observer that assisted in monitoring the patient's level of consciousness and physiologic status. After administration of fentanyl and Versed, my intra service time was 15 minutes. Gabino Terry MD
[2017-01-12 06:20] LABS: BASO # 0.02 K/mm3 (0.0-2.0); BASO % 0.3 % (0.0-3.0); EOS # 0.1 (0.0-0.7); EOS % 1.6 % (1.5-5.0); GRAN # 3.36 (1.4-6.5); GRAN % 54.9 % (50.0-68.0); HEMATOCRIT 36.3 % (36.0-48.0); LYMPH % 32.1 % (22.0-35.0); MEAN CELL VOLUME 91.7 fl (80.0-105.0); MEAN CORPUSCULAR HEMOGLOBIN 29.8 pg (25.0-35.0); MEAN CORPUSCULAR HGB CONC 32.5 g/dl (31.0-37.0); MEAN PLATELET VOLUME 9.8 fl (7.0-11.0); MONO # 0.7 (0.1-0.6); MONO % 11.1 % (1.0-6.0); RED CELL DISTRIBUTION WIDTH 14.6 % (11.5-14.5); WHITE BLOOD COUNT 6.1 10^3/ul (4.5-11.0)
[2017-01-12 08:37] LABS: ALB/GLOB RATIO 0.8 (1.1-1.8); ALKALINE PHOSPHATASE 102 U/L (38-126); ALT/SGPT 21 U/L (7-56); AST/SGOT 32 U/L (14-36); BILIRUBIN,TOTAL 0.8 mg/dL (0.2-1.3); BLOOD UREA NITROGEN 15 mg/dL (7-21); CALCIUM 8.6 mg/dL (8.4-10.5); CARBON DIOXIDE 20 mmol/L (21-33); CHLORIDE 111 mmol/L (98-107); GFR AFRICAN-AMERICAN > 60; GLUCOSE,RANDOM 120 mg/dL (70-110); POTASSIUM 4.5 mmol/L (3.6-5.0); SODIUM 141 mmol/L (132-148)
--- NOTE | 2017-01-12 09:45 | NM ---
COMPARISON: TECHNIQUE: 30.0 mCi technetium 99-m DTPA inhaled 3.2 mCI technetium 99-m MAA administered intravenously. FINDINGS: VENTILATION COMPONENT: Normal. PERFUSION COMPONENT: Normal. IMPRESSION: Lowprobability ventilation perfusion scan for pulmonary embolism.
--- NOTE | 2017-01-12 10:04 | PN ---
DATE: 01/12/2017 SUBJECTIVE: The patient is chest pain free. She is feeling well. OBJECTIVE: VITAL SIGNS: Blood pressure is 120/70 and heart rate is in the 90s. NECK: Negative JVD. LUNGS: Without rales. HEART: S1 and S2. EXTREMITIES: Without edema. The right groin site is stable. LABORATORY DATA: Hemoglobin is 11.8. Chemistries unremarkable. IMPRESSION: 1. Status post [id number] myocardial infarction. 2. Nonobstructive coronary artery disease. 3. Normal left ventricular function. 4. Diabetes mellitus. PLAN: Given these findings, the patient's lack of significant coronary artery disease cannot explain her elevated troponin. We will obtain a V/Q scan today to rule out pulmonary embolism. We will discontinue her Plavix. We will discontinue telemetry. Her renal function is stable post cardiac catheterization with aggressive hydration. Gabino Terry MD
[2017-01-12] MEDS ORDERED: Sodium Chloride 0.9% 1,000 ML IV SCH (12:00)
--- NOTE | 2017-01-12 12:31 | CP.PCM.PN ---
Subjective - Date & Time of Evaluation Date of Evaluation: 01/12/17 Time of Evaluation: 07:00 - Subjective Subjective: Medicine Progress note: Pt seen and examined at bedside. No acute events overnight. Denies any chest pain, palpitations, or sob currently. 12 point ROS reviewed and negative other than stated above. Objective - Vital Signs/Intake and Output Vital Signs (last 24 hours): Temp Pulse Resp BP Pulse Ox 98.1 F 74 18 148/91 H 98 01/12/17 11:49 01/12/17 11:49 01/12/17 11:49 01/12/17 11:49 01/12/17 06:00 Intake and Output: 01/12/17 01/12/17 06:59 18:59 Intake Total 500 Output Total 0 Balance 500 - Medications Medications: Current Medications Amitriptyline HCl (Elavil) 50 mg PO HS [facility] Last Admin: 01/12/17 01:23 Dose: Not Given Aspirin (Ecotrin) 81 mg PO DAILY [facility] Last Admin: 01/12/17 09:40 Dose: 81 mg Ergocalciferol (Drisdol 50,000 Intl Units Cap) 1 cap PO Q7D [facility] Last Admin: 01/11/17 17:46 Dose: 1 cap Sodium Chloride (Sodium Chloride 0.9%) 1,000 mls @ 40 mls/hr IV .Q24H [facility] Meclizine HCl (Antivert) 25 mg PO TID PRN PRN Reason: Dizziness Metoprolol Tartrate (Lopressor) 25 mg PO BID [facility] Last Admin: 01/12/17 09:40 Dose: 25 mg - Labs Labs: 01/12/17 05:15 01/12/17 05:15 PT 15.1 SECONDS (9.4-12.5) H 01/09/17 15:30 INR 1.38 (0.93-1.08) H 01/09/17 15:30 APTT 72.5 Seconds (25.1-36.5) H 01/11/17 04:00 - Constitutional Appears: No Acute Distress - Head Exam Head Exam: ATRAUMATIC, NORMOCEPHALIC - Eye Exam Eye Exam: EOMI - ENT Exam ENT Exam: Mucous Membranes Moist - Respiratory Exam Respiratory Exam: Clear to Ausculation Bilateral. absent: Rales, Rhonchi, Wheezes - Cardiovascular Exam Cardiovascular Exam: REGULAR RHYTHM, RRR, +S1, +S2 - GI/Abdominal Exam GI & Abdominal Exam: Soft. absent: Tenderness - Extremities Exam Extremities Exam: absent: Calf Tenderness, Pedal Edema - Neurological Exam Neurological Exam: Alert, Awake, Oriented x3 - Psychiatric Exam Psychiatric exam: Normal Affect, Normal Mood - Skin Skin Exam: Dry, Intact, Warm Assessment and Plan - Assessment and Plan (Free Text) Assessment: 61 yo female with PMH of HTN, vertigo present with bilateral foot pain found to have abnormal EKG changes and NSTEMI. 1. NSTEMI - Troponin increased to 0.17 --> 0.45 this AM - Will follow up trops this afternoon - V/Q scan was low probability for PE - Will order fluid hydration 40ml/hr and will consider CT Angio mary kate if troponin continues to inc - Cardiac cath yesterday unremarkable coronary arteries - stress test on 05/2016 was equivocal, with fixed anteroseptal defect - previous echo on 02/08/2016 showed EF of 32% and severe LV dysfunction - F/u echo -severely impaired systolic dysfunction EF of 33% mod MR mild pulm HTN - troponin 0.14 --> .12 --> .17--> .45 - cardiology consulted for recs - repeat EKG - Continue lopressor, asa - hold jayla inhibitor due to renal function 2. Bilateral foot pain - xray of left foot negative, xray right foot negative - lower extremity US - negative 3. MORGAN - creatinine 1.6--> 1.2--> 1 today - Mild fluid hydrations 40ml/hr - Renal US was unremarkable - nephrology consulted for recs - cautious fluids, strict I/O, daily weight - will follow up work up - hold jayla inhibitor due to renal function - will consider continuing soon once Cr more stable 4. Hypokalemia - resolved 5. GI/DVT ppx - Heparin and pepcid Pt was seen and plan was reviewed in detail with Dr Barber.
--- NOTE | 2017-01-12 16:17 | CP.PCM.PN ---
Subjective - Date & Time of Evaluation Date of Evaluation: 01/12/17 Time of Evaluation: 16:13 - Subjective Subjective: Nephrology Consultation: Assessment: Stable Acute Kidney Injury (N17.9): improved Hypertensive Chronic Kidney Disease (I12.9) vitamin d def Chronic Kidney Disease (N18.3) Stage 3 possibly due to HTN/cardio-renal CHF systolic, HTN (I12.9), obesity herpetic sores on lips non-obstructive CAD Plan No acute need for renal replacement therapy at this time. Hypertension control with meds as ordered. Patient not on ACEI/ARB : agree with cardiology initiating it considering her CHF. choice of ACEI versus ARB: will defer to cardio Monitor Input/Output, daily weights and renal function with basic metabolic panel supplement with weekly vit D can d/c IVF (no renal benefit now post cardiac cath) due to her hx of CHF and developing edema. consider diuretics Dose meds/antibiotics for improved GFR. Avoid fleets enema/magnesium based laxatives. Avoid nephrotoxins/NSAIDs/ iodinated contrast (unless needed emergently) Glycemic control Further work up/management as per primary team Thanks for allowing me to participate in care of your patient. Please call if any Qs Dr Henry Luevano Office: [phone] Chief Complaint; leg pains HPI: Pt is a 61 F with hx of hypertension (many years), chronic severe systolic CHF, depression presented with complaints of leg pains and SOB x 1 week. renal consulted for elevated creatinine ROS: Denies chest pain, palpitation, c/o leg swelling and intermittent SOB had cardiac cath 01/11/17 Physical Examination: General Appearance: Comfortable, co-operative . obese Vitals reviewed and noted as below Head; Atraumatic, normocephalic ENT: no ulcers no thrush. Tongue is midline. Oropharynx: no rash or ulcers. has cold sores over lips EYES: Pupils are equal, round and reactive to light accommodation. Eye muscles and extraocular movement intact. Sclera is anicteric. Neck; supple no lymphadenopathy, no thyromegaly or bruit Lungs: Normal respiratory rate/effort. Breath sounds bilateral slight decrease at bases Heart: Normal rate. s1s2 normal. No rub or gallop. Extremities: 1+ edema. No varicose veins Neurological: Patient is alert, awake and oriented to person, place and time. No focal deficit. Strength bilateral appropriate and equal Skin: Warm and dry. Normal turgor. No rash. Palpitation: Normal elasticity for age Abdomen: Abdomen is soft. Bowel sounds +. There is no abdominal tenderness, no guarding/rigidity no organomegaly Psych: normal insight and normal affect/mood MSK: no joint tenderness or swelling. Digits and nails normal, no deformity : kidney or bladder not palpable Labs/imaging reviewed. Past medical history, past surgical history, family history, social history, allergy reviewed and noted as below Family hx: no hx of CKD. Rest non-contributory renal sono: unremarkable FeNa <1% Objective - Vital Signs/Intake and Output Vital Signs (last 24 hours): Temp Pulse Resp BP Pulse Ox 98.1 F 86 18 148/91 H 98 01/12/17 11:49 01/12/17 14:00 01/12/17 11:49 01/12/17 11:49 01/12/17 06:00 Intake and Output: 01/12/17 01/12/17 06:59 18:59 Intake Total 500 Output Total 0 Balance 500 - Medications Medications: Current Medications Amitriptyline HCl (Elavil) 50 mg PO HS [facility] Last Admin: 01/12/17 01:23 Dose: Not Given Aspirin (Ecotrin) 81 mg PO DAILY [facility] Last Admin: 01/12/17 09:40 Dose: 81 mg Ergocalciferol (Drisdol 50,000 Intl Units Cap) 1 cap PO Q7D [facility] Last Admin: 01/11/17 17:46 Dose: 1 cap Meclizine HCl (Antivert) 25 mg PO TID PRN PRN Reason: Dizziness Metoprolol Tartrate (Lopressor) 25 mg PO BID [facility] Last Admin: 01/12/17 09:40 Dose: 25 mg - Labs Labs: 01/12/17 05:15 01/12/17 05:15 PT 15.1 SECONDS (9.4-12.5) H 01/09/17 15:30 INR 1.38 (0.93-1.08) H 01/09/17 15:30 APTT 72.5 Seconds (25.1-36.5) H 01/11/17 04:00
--- NOTE | 2017-01-12 17:09 | CARD ---
APPROVED REPORT EKG Measurement Heart [id number] <Conclusion> Normal sinus rhythm Left bundle branch block Abnormal ECG
[2017-01-13 06:50] LABS: BASO # 0.03 K/mm3 (0.0-2.0); BASO % 0.6 % (0.0-3.0); EOS # 0.1 (0.0-0.7); EOS % 2.8 % (1.5-5.0); GRAN # 2.28 (1.4-6.5); GRAN % 45.7 % (50.0-68.0); HEMATOCRIT 34.5 % (36.0-48.0); LYMPH # 1.9 (1.2-3.4); LYMPH % 37.1 % (22.0-35.0); MEAN CELL VOLUME 92.7 fl (80.0-105.0); MEAN CORPUSCULAR HEMOGLOBIN 29.3 pg (25.0-35.0); MEAN CORPUSCULAR HGB CONC 31.6 g/dl (31.0-37.0); MEAN PLATELET VOLUME 9.7 fl (7.0-11.0); MONO # 0.7 (0.1-0.6); MONO % 13.8 % (1.0-6.0); RED CELL DISTRIBUTION WIDTH 14.6 % (11.5-14.5)
[2017-01-13 07:57] LABS: ALB/GLOB RATIO 0.9 (1.1-1.8); ALKALINE PHOSPHATASE 80 U/L (38-126); ALT/SGPT 31 U/L (7-56); AST/SGOT 39 U/L (14-36); BILIRUBIN,TOTAL 0.7 mg/dL (0.2-1.3); BLOOD UREA NITROGEN 11 mg/dL (7-21); CALCIUM 8.6 mg/dL (8.4-10.5); CARBON DIOXIDE 23 mmol/L (21-33); CHLORIDE 110 mmol/L (98-107); GFR AFRICAN-AMERICAN > 60; GLUCOSE,RANDOM 107 mg/dL (70-110); POTASSIUM 4.6 mmol/L (3.6-5.0); SODIUM 141 mmol/L (132-148); TOTAL PROTEIN 6.4 g/dL (5.8-8.3)
--- NOTE | 2017-01-13 09:31 | CP.PCM.PN ---
Subjective - Date & Time of Evaluation Date of Evaluation: 01/13/17 Time of Evaluation: 09:27 - Subjective Subjective: Medicine Progress Note for Uvaldo Soriano PGY2 Patient seen and examined at bedside. As per nursing staff, there were no acute overnight events. Patient reports feeling well today. She denies having chest pain, shortness of breath, nausea/vomiting/diarrhea, fever/chills, constipation , numbness/tingling, dysuria or hematuria. Objective - Vital Signs/Intake and Output Vital Signs (last 24 hours): Temp Pulse Resp BP Pulse Ox 98.2 F 90 19 137/80 99 01/13/17 06:00 01/13/17 06:00 01/13/17 06:00 01/13/17 06:00 01/13/17 06:00 Intake and Output: 01/13/17 01/13/17 06:59 18:59 Intake Total 50 Output Total 0 Balance 50 - Medications Medications: Current Medications Amitriptyline HCl (Elavil) 50 mg PO HS [facility] Last Admin: 01/12/17 21:06 Dose: 50 mg Aspirin (Ecotrin) 81 mg PO DAILY [facility] Last Admin: 01/12/17 09:40 Dose: 81 mg Ergocalciferol (Drisdol 50,000 Intl Units Cap) 1 cap PO Q7D [facility] Last Admin: 01/11/17 17:46 Dose: 1 cap Meclizine HCl (Antivert) 25 mg PO TID PRN PRN Reason: Dizziness Metoprolol Tartrate (Lopressor) 25 mg PO BID [facility] Last Admin: 01/12/17 17:34 Dose: 25 mg - Labs Labs: 01/13/17 05:30 01/13/17 05:30 PT 15.1 SECONDS (9.4-12.5) H 01/09/17 15:30 INR 1.38 (0.93-1.08) H 01/09/17 15:30 APTT 72.5 Seconds (25.1-36.5) H 01/11/17 04:00 - Constitutional Appears: No Acute Distress - Head Exam Head Exam: ATRAUMATIC, NORMAL INSPECTION, NORMOCEPHALIC - Eye Exam Eye Exam: Normal appearance, PERRL Pupil Exam: NORMAL ACCOMODATION, PERRL - ENT Exam ENT Exam: Mucous Membranes Moist Additional comments: herpetic lesion on R upper lip. - Neck Exam Neck Exam: Full ROM, Normal Inspection - Respiratory Exam Respiratory Exam: Clear to Ausculation Bilateral, NORMAL BREATHING PATTERN. absent: Rales, Rhonchi, Wheezes - Cardiovascular Exam Cardiovascular Exam: REGULAR RHYTHM, +S1, +S2. absent: Gallop, Rubs, Murmur - GI/Abdominal Exam GI & Abdominal Exam: Soft, Normal Bowel Sounds. absent: Tenderness, Mass, Rebound - Extremities Exam Extremities Exam: Pedal Edema (+ 1 bilaterally ) Additional comments: R femoral cath site clean and dry- no drainage or hematoma - Neurological Exam Neurological Exam: Alert, Awake, CN II-XII Intact, Oriented x3 - Psychiatric Exam Psychiatric exam: Normal Affect, Normal Mood - Skin Skin Exam: Dry, Warm Assessment and Plan - Assessment and Plan (Free Text) Assessment: This is a 61yo female with past medical history of HTN and vertigo who came to ED with complaint of bilateral foot pain. She was found to have NSTEMI. She is s /p cardiac cath. Plan: 1. NSTEMI - S/P cardiac cath with unremarkable coronaries - Stress test on 05/2016 was equivocal with fixed anteroseptal defect - Cardiology consulted- recommended to d/c Plavix and order V/Q to rule out PE - V/Q showed low probability for PE - Echo 01/2016 showed EF 32% with severe LV dysfunction - Repeat echo showed EF of 33% severely impaired systolic dysfunction, with mod MR, mild pulm HTN - Continue ASA and Lopressor - EKG showed NSR with LBBB - Spoke with Dr. Terry who does not recommend MONICA/ARB at this time since patient is non-compliant with medications and is normotensive. 2. Bilateral foot pain - LE U/S negative - Xray of L and R foot negative - Continue Elavil - Will check HgbA1c 3. Herpetic lesion on mouth - Abreva not available in hospital- Recommend to start OTC Abreva as outpatient - Will do Oragel while in house 3. MORGAN- resolved - Cr: 0.9 - Renal U/S within normal limits - Nephrology consulted- recs appreciated - Renal US was unremarkable 4. Hx of Vertigo - Continue Meclizine 5. Vit D deficiency - Continue Vit D supplementation GI ppx: Pepcid DVT ppx: Heparin Case seen, reviewed and discussed with Dr. Barber. Uvaldo Brar PGY2
[2017-01-13] MEDS ORDERED: Benzocaine 20% Cream(7 gm) MT PRN (11:12)
--- NOTE | 2017-01-13 11:19 | PN ---
DATE: 01/13/2017 SUBJECTIVE: The patient is asymptomatic. PHYSICAL EXAMINATION: VITAL SIGNS: Blood pressure is 137/80, heart rate is in the 90s. NECK: Negative JVD. LUNGS: Without rales. HEART: With S1, S2. EXTREMITIES: Without edema. LABORATORY DATA: The BUN and creatinine are back to normal. Hemoglobin is 10.9. VQ scan showed low probability for pulmonary embolism. IMPRESSION: 1. Mildly elevated troponins cannot be explained by ischemic cardiac disease. 2. Cardiomyopathy. 3. Anemia. 4. Renal insufficiency is resolved with aggressive hydration. PLAN: Given these findings, we will treat the patient with aspirin as well as beta blockers. No further cardiac workup is indicated at this time. Gabino Terry MD
[2017-01-14 07:44] LABS: BASO # 0.03 K/mm3 (0.0-2.0); BASO % 0.6 % (0.0-3.0); EOS # 0.2 (0.0-0.7); EOS % 3.2 % (1.5-5.0); GRAN # 2.23 (1.4-6.5); GRAN % 44.6 % (50.0-68.0); HEMATOCRIT 37.2 % (36.0-48.0); LYMPH # 1.9 (1.2-3.4); MEAN CELL VOLUME 92.5 fl (80.0-105.0); MEAN CORPUSCULAR HEMOGLOBIN 30.1 pg (25.0-35.0); MEAN CORPUSCULAR HGB CONC 32.5 g/dl (31.0-37.0); MEAN PLATELET VOLUME 9.7 fl (7.0-11.0); MONO # 0.7 (0.1-0.6); MONO % 14.6 % (1.0-6.0); RED CELL DISTRIBUTION WIDTH 14.3 % (11.5-14.5)
[2017-01-14 08:18] LABS: ALB/GLOB RATIO 0.9 (1.1-1.8); ALKALINE PHOSPHATASE 81 U/L (38-126); ALT/SGPT 26 U/L (7-56); AST/SGOT 28 U/L (14-36); BILIRUBIN,TOTAL 0.7 mg/dL (0.2-1.3); BLOOD UREA NITROGEN 11 mg/dL (7-21); CALCIUM 8.9 mg/dL (8.4-10.5); CARBON DIOXIDE 21 mmol/L (21-33); CHLORIDE 108 mmol/L (98-107); GFR AFRICAN-AMERICAN > 60; GLUCOSE,RANDOM 107 mg/dL (70-110); POTASSIUM 4.3 mmol/L (3.6-5.0); SODIUM 139 mmol/L (132-148); TOTAL PROTEIN 7.1 g/dL (5.8-8.3)
--- NOTE | 2017-01-14 10:35 | CP.PCM.PN ---
<Maribell Brar - Last Filed: 01/14/17 10:32> Subjective - Date & Time of Evaluation Date of Evaluation: 01/14/17 Time of Evaluation: 07:00 - Subjective Subjective: Medicine Progress Note for Uvaldo Wilson PGY2 Patient seen and examined at bedside. There were no acute overnight events as per nursing staff. Patient was resting in bed this morning eating breakfast. She feels well without any complaints. She denies chest pain, SOB, nausea/ vomiting/diarrhea, fever/chills, numbness/tingling, dysuria/hematuria. Objective - Vital Signs/Intake and Output Vital Signs (last 24 hours): Temp Pulse Resp BP Pulse Ox 98 F 85 22 125/85 98 01/14/17 08:36 01/14/17 09:14 01/14/17 08:36 01/14/17 09:14 01/14/17 08:36 Intake and Output: 01/14/17 01/14/17 06:59 18:59 Intake Total 180 Balance 180 - Medications Medications: Current Medications Amitriptyline HCl (Elavil) 50 mg PO HS [facility] Last Admin: 01/13/17 21:17 Dose: 50 mg Aspirin (Ecotrin) 81 mg PO DAILY [facility] Last Admin: 01/14/17 09:14 Dose: 81 mg Benzocaine (Orajel Pm Maximum Strength) 0 gm MT QID PRN PRN Reason: Pain, Mild (1-3) Ergocalciferol (Drisdol 50,000 Intl Units Cap) 1 cap PO Q7D [facility] Last Admin: 01/11/17 17:46 Dose: 1 cap Famotidine (Pepcid) 40 mg PO HS [facility] Last Admin: 01/13/17 21:17 Dose: 40 mg Heparin Sodium (Porcine) (Heparin) 5,000 units SC Q12 [facility] PRN Reason: Protocol Last Admin: 01/14/17 09:14 Dose: 5,000 units Meclizine HCl (Antivert) 25 mg PO TID PRN PRN Reason: Dizziness Last Admin: 01/13/17 09:58 Dose: 25 mg Metoprolol Tartrate (Lopressor) 25 mg PO BID [facility] Last Admin: 01/14/17 09:14 Dose: 25 mg - Labs Labs: 01/14/17 06:45 01/14/17 06:45 PT 15.1 SECONDS (9.4-12.5) H 01/09/17 15:30 INR 1.38 (0.93-1.08) H 01/09/17 15:30 APTT 72.5 Seconds (25.1-36.5) H 01/11/17 04:00 - Constitutional Appears: No Acute Distress - Head Exam Head Exam: ATRAUMATIC, NORMOCEPHALIC. absent: NORMAL INSPECTION Additional comments: dry and flaking on L side of scalp - Eye Exam Eye Exam: Normal appearance Pupil Exam: NORMAL ACCOMODATION - ENT Exam ENT Exam: Mucous Membranes Moist Additional comments: Herpetic Lesion on lips with crusting - Neck Exam Neck Exam: Full ROM - Respiratory Exam Respiratory Exam: Clear to Ausculation Bilateral, NORMAL BREATHING PATTERN - GI/Abdominal Exam GI & Abdominal Exam: Soft, Normal Bowel Sounds. absent: Rigid, Tenderness, Mass , Rebound - Extremities Exam Extremities Exam: Normal Inspection, Pedal Edema (trace bilateral) - Neurological Exam Neurological Exam: Alert, Awake, CN II-XII Intact, Oriented x3 - Psychiatric Exam Psychiatric exam: Normal Affect, Normal Mood - Skin Skin Exam: Dry, Warm Assessment and Plan - Assessment and Plan (Free Text) Assessment: This is a 61yo female with past medical history of HTN and vertigo who came to ED with complaint of bilateral foot pain. She was found to have NSTEMI. She is s /p cardiac cath. Plan: 1. NSTEMI - Stress test on 05/2016 was equivocal with fixed anteroseptal defect - S/P cardiac cath with unremarkable coronaries - Cardiology consulted- recs appreciated - V/Q showed low probability for PE - echo showed EF of 33% severely impaired systolic dysfunction, with mod MR, mild pulm HTN - Continue ASA and Lopressor - Plavix d/c 2. Bilateral foot pain - LE U/S negative - Xray of L and R foot negative - HgbA1c pending - Continue Elavil 3. Herpetic lesion on mouth - Abreva not available in hospital- Recommend to start OTC Abreva as outpatient - Oragel prn and Topical Vit A&D ointment BID 4. Scalp dermatitis - Ketoconazole shampoo given once 5. MORGAN- resolved - Cr: 0.8 - Nephrology consulted- recs appreciated - Renal US was unremarkable 6. Hx of Vertigo - Continue Meclizine 7. Vit D deficiency - Continue Vit D supplementation GI ppx: Pepcid DVT ppx: Heparin SC Disposition: Patient's family evaluated her home which was in poor condition. D/ c plan for Sunday when social work can further evaluate if patient needs any services. Case seen, reviewed and discussed with Dr. Barber. Uvaldo Brar PGY2 <Shivam Osborn - Last Filed: 01/15/17 06:42> Subjective - Subjective Subjective: discussed w/ resident at length went over meds labs orders plans Objective - Vital Signs/Intake and Output Vital Signs (last 24 hours): Temp Pulse Resp BP Pulse Ox 98.4 F 85 20 125/87 100 01/14/17 16:00 01/14/17 17:00 01/14/17 16:00 01/14/17 17:00 01/14/17 16:00 Intake and Output: 01/14/17 01/15/17 18:59 06:59 Intake Total 960 180 Balance 960 180 - Medications Medications: Current Medications Amitriptyline HCl (Elavil) 50 mg PO HS [facility] Last Admin: 01/14/17 21:16 Dose: 50 mg Aspirin (Ecotrin) 81 mg PO DAILY [facility] Last Admin: 01/14/17 09:14 Dose: 81 mg Benzocaine (Orajel Pm Maximum Strength) 0 gm MT QID PRN PRN Reason: Pain, Mild (1-3) Ergocalciferol (Drisdol 50,000 Intl Units Cap) 1 cap PO Q7D [facility] Last Admin: 01/11/17 17:46 Dose: 1 cap Famotidine (Pepcid) 40 mg PO HS [facility] Last Admin: 01/14/17 21:16 Dose: 40 mg Heparin Sodium (Porcine) (Heparin) 5,000 units SC Q12 [facility] PRN Reason: Protocol Last Admin: 01/14/17 21:16 Dose: 5,000 units Meclizine HCl (Antivert) 25 mg PO TID PRN PRN Reason: Dizziness Last Admin: 01/13/17 09:58 Dose: 25 mg Metoprolol Tartrate (Lopressor) 25 mg PO BID [facility] Last Admin: 01/14/17 17:00 Dose: 25 mg Vitamin A (Vitamin A & D Oint Ud Foilpak) 1 ea TOP BID [facility] Last Admin: 01/14/17 17:00 Dose: 1 ea - Labs Labs: 01/14/17 06:45 01/14/17 06:45 PT 15.1 SECONDS (9.4-12.5) H 01/09/17 15:30 INR 1.38 (0.93-1.08) H 01/09/17 15:30 APTT 72.5 Seconds (25.1-36.5) H 01/11/17 04:00
[2017-01-14] MEDS: Vitamins A & D Oint UD Foilpak TOP SCH ×2 (11:00→17:00)
[2017-01-15 07:45] LABS: HEMATOCRIT 38.8 % (36.0-48.0); MEAN CELL VOLUME 91.7 fl (80.0-105.0); MEAN CORPUSCULAR HEMOGLOBIN 29.8 pg (25.0-35.0); MEAN CORPUSCULAR HGB CONC 32.5 g/dl (31.0-37.0); MEAN PLATELET VOLUME 9.5 fl (7.0-11.0); RED CELL DISTRIBUTION WIDTH 13.8 % (11.5-14.5); WHITE BLOOD COUNT 6.1 10^3/ul (4.5-11.0)
[2017-01-15 08:13] LABS: ALB/GLOB RATIO 0.9 (1.1-1.8); ALKALINE PHOSPHATASE 80 U/L (38-126); ALT/SGPT 29 U/L (7-56); AST/SGOT 31 U/L (14-36); BILIRUBIN,TOTAL 0.6 mg/dL (0.2-1.3); BLOOD UREA NITROGEN 12 mg/dL (7-21); CALCIUM 8.8 mg/dL (8.4-10.5); CARBON DIOXIDE 26 mmol/L (21-33); CHLORIDE 104 mmol/L (98-107); GFR AFRICAN-AMERICAN > 60; GLUCOSE,RANDOM 125 mg/dL (70-110); POTASSIUM 4.4 mmol/L (3.6-5.0); SODIUM 139 mmol/L (132-148); TOTAL PROTEIN 7.1 g/dL (5.8-8.3)
[2017-01-15] MEDS: Vitamins A & D Oint UD Foilpak TOP SCH ×2 (09:28→18:36)
--- NOTE | 2017-01-15 15:45 | CP.PCM.PN ---
Subjective - Date & Time of Evaluation Date of Evaluation: 01/15/17 Time of Evaluation: 15:44 - Subjective Subjective: Nephrology Consultation: Assessment: Stable Acute Kidney Injury (N17.9): improved Hypertension vitamin d def CHF systolic, HTN (I12.9), obesity herpetic sores on lips non-obstructive CAD Plan No acute need for renal replacement therapy at this time. Hypertension control with meds as ordered. Patient not on ACEI/ARB : agree with cardiology initiating it considering her CHF. added lisinopril 20 mg/day Monitor Input/Output, daily weights and renal function with basic metabolic panel supplement with weekly vit D further management of CHF as per cardio Dose meds/antibiotics for improved GFR. Avoid fleets enema/magnesium based laxatives. Avoid nephrotoxins/NSAIDs/ iodinated contrast (unless needed emergently) Glycemic control Further work up/management as per primary team Thanks for allowing me to participate in care of your patient. Please call if any Qs. pt stable for d/c from renal perspective. Dr Henry Luevano Office: [phone] Chief Complaint; leg swelling HPI: Pt is a 61 F with hx of hypertension (many years), chronic severe systolic CHF, depression presented with complaints of leg pains and SOB x 1 week. renal consulted for elevated creatinine ROS: Denies chest pain, palpitation, c/o leg swelling and denies SOB had cardiac cath 01/11/17 Physical Examination: General Appearance: Comfortable, co-operative . obese Vitals reviewed and noted as below Head; Atraumatic, normocephalic ENT: no ulcers no thrush. Tongue is midline. Oropharynx: no rash or ulcers. has cold sores over lips EYES: Pupils are equal, round and reactive to light accommodation. Eye muscles and extraocular movement intact. Sclera is anicteric. Neck; supple no lymphadenopathy, no thyromegaly or bruit Lungs: Normal respiratory rate/effort. Breath sounds bilateral clear Heart: Normal rate. s1s2 normal. No rub or gallop. Extremities: 2+ edema. No varicose veins Neurological: Patient is alert, awake and oriented to person, place and time. No focal deficit. Strength bilateral appropriate and equal Skin: Warm and dry. Normal turgor. No rash. Palpitation: Normal elasticity for age Abdomen: Abdomen is soft. Bowel sounds +. There is no abdominal tenderness, no guarding/rigidity no organomegaly Psych: normal insight and normal affect/mood MSK: no joint tenderness or swelling. Digits and nails normal, no deformity : kidney or bladder not palpable Labs/imaging reviewed. Past medical history, past surgical history, family history, social history, allergy reviewed and noted as below Family hx: no hx of CKD. Rest non-contributory renal sono: unremarkable FeNa <1% Objective - Vital Signs/Intake and Output Vital Signs (last 24 hours): Temp Pulse Resp BP Pulse Ox 98.7 F 82 20 167/77 H 100 01/15/17 06:00 01/15/17 09:27 01/15/17 06:00 01/15/17 09:27 01/14/17 16:00 Intake and Output: 01/15/17 01/15/17 06:59 18:59 Intake Total 180 600 Balance 180 600 - Medications Medications: Current Medications Amitriptyline HCl (Elavil) 50 mg PO HS [facility] Last Admin: 01/14/17 21:16 Dose: 50 mg Aspirin (Ecotrin) 81 mg PO DAILY [facility] Last Admin: 01/15/17 09:27 Dose: 81 mg Benzocaine (Orajel Pm Maximum Strength) 0 gm MT QID PRN PRN Reason: Pain, Mild (1-3) Ergocalciferol (Drisdol 50,000 Intl Units Cap) 1 cap PO Q7D [facility] Last Admin: 01/11/17 17:46 Dose: 1 cap Famotidine (Pepcid) 40 mg PO HS [facility] Last Admin: 01/14/17 21:16 Dose: 40 mg Heparin Sodium (Porcine) (Heparin) 5,000 units SC Q12 [facility] PRN Reason: Protocol Last Admin: 01/15/17 09:26 Dose: 5,000 units Lisinopril (Zestril) 20 mg PO QPM [facility] Meclizine HCl (Antivert) 25 mg PO TID PRN PRN Reason: Dizziness Last Admin: 01/13/17 09:58 Dose: 25 mg Metoprolol Tartrate (Lopressor) 25 mg PO BID [facility] Last Admin: 01/15/17 09:27 Dose: 25 mg Vitamin A (Vitamin A & D Oint Ud Foilpak) 1 ea TOP BID [facility] Last Admin: 01/15/17 09:28 Dose: 1 ea - Labs Labs: 01/15/17 07:00 01/15/17 07:00 PT 15.1 SECONDS (9.4-12.5) H 01/09/17 15:30 INR 1.38 (0.93-1.08) H 01/09/17 15:30 APTT 72.5 Seconds (25.1-36.5) H 01/11/17 04:00
--- NOTE | 2017-01-15 16:13 | CP.PCM.PN ---
Subjective - Date & Time of Evaluation Date of Evaluation: 01/15/17 Time of Evaluation: 07:45 - Subjective Subjective: PGY1 Progress Note for Dr. Ornelas/Dr. Barber service Patient seen and examined at bedside. No acute events overnight reported. Patient denies chest pain, shortness of breath, abdominal discomfort, nausea, vomiting, fever, chills. Discussions with family and patient regarding discharge planning ongoing. Objective - Vital Signs/Intake and Output Vital Signs (last 24 hours): Temp Pulse Resp BP Pulse Ox 98.7 F 82 20 167/77 H 100 01/15/17 06:00 01/15/17 09:27 01/15/17 06:00 01/15/17 09:27 01/14/17 16:00 Intake and Output: 01/15/17 01/15/17 06:59 18:59 Intake Total 180 600 Balance 180 600 - Medications Medications: Current Medications Amitriptyline HCl (Elavil) 50 mg PO HS [facility] Last Admin: 01/14/17 21:16 Dose: 50 mg Aspirin (Ecotrin) 81 mg PO DAILY [facility] Last Admin: 01/15/17 09:27 Dose: 81 mg Benzocaine (Orajel Pm Maximum Strength) 0 gm MT QID PRN PRN Reason: Pain, Mild (1-3) Ergocalciferol (Drisdol 50,000 Intl Units Cap) 1 cap PO Q7D [facility] Last Admin: 01/11/17 17:46 Dose: 1 cap Famotidine (Pepcid) 40 mg PO HS [facility] Last Admin: 01/14/17 21:16 Dose: 40 mg Heparin Sodium (Porcine) (Heparin) 5,000 units SC Q12 [facility] PRN Reason: Protocol Last Admin: 01/15/17 09:26 Dose: 5,000 units Lisinopril (Zestril) 20 mg PO QPM [facility] Meclizine HCl (Antivert) 25 mg PO TID PRN PRN Reason: Dizziness Last Admin: 01/13/17 09:58 Dose: 25 mg Metoprolol Tartrate (Lopressor) 25 mg PO BID [facility] Last Admin: 01/15/17 09:27 Dose: 25 mg Vitamin A (Vitamin A & D Oint Ud Foilpak) 1 ea TOP BID [facility] Last Admin: 01/15/17 09:28 Dose: 1 ea - Labs Labs: 01/15/17 07:00 01/15/17 07:00 PT 15.1 SECONDS (9.4-12.5) H 01/09/17 15:30 INR 1.38 (0.93-1.08) H 01/09/17 15:30 APTT 72.5 Seconds (25.1-36.5) H 01/11/17 04:00 - Constitutional Appears: Non-toxic, No Acute Distress - Head Exam Head Exam: ATRAUMATIC, NORMAL INSPECTION, NORMOCEPHALIC Additional comments: cradle cap noted - Eye Exam Eye Exam: EOMI, PERRL - ENT Exam ENT Exam: Mucous Membranes Moist Additional comments: Herpetic lesions noted on upper and bottom lips with crusting - Neck Exam Neck Exam: Full ROM - Respiratory Exam Respiratory Exam: Clear to Ausculation Bilateral, NORMAL BREATHING PATTERN. absent: Rhonchi, Wheezes - Cardiovascular Exam Cardiovascular Exam: REGULAR RHYTHM, +S1, +S2 - GI/Abdominal Exam GI & Abdominal Exam: Soft, Normal Bowel Sounds. absent: Tenderness - Extremities Exam Extremities Exam: Normal Capillary Refill, Pedal Edema (+1/+2). absent: Calf Tenderness, Tenderness - Back Exam Back Exam: NORMAL INSPECTION - Neurological Exam Neurological Exam: Alert, Awake, CN II-XII Intact, Normal Gait, Oriented x3 - Psychiatric Exam Psychiatric exam: Normal Affect, Normal Mood - Skin Skin Exam: Dry, Intact Assessment and Plan - Assessment and Plan (Free Text) Assessment: Patient is a 61yo female with past medical history of HTN and vertigo who came to ED with complaint of bilateral foot pain. She was found to have NSTEMI. She is s/p cardiac cath. Plan: 1. NSTEMI - Stress test on 05/2016 was equivocal with fixed anteroseptal defect - S/P cardiac cath with unremarkable coronaries - Cardiology consulted- recs appreciated - V/Q showed low probability for PE - echo showed EF of 33% severely impaired systolic dysfunction, with mod MR, mild pulm HTN - Continue ASA and Lopressor - Plavix d/c 2. Bilateral foot pain - LE U/S negative - Xray of L and R foot negative - Continue Elavil 3. Herpetic lesion on mouth - Abreva not available in hospital- Recommend to start OTC Abreva as outpatient - Oragel prn and Topical Vit A&D ointment BID 4. Scalp dermatitis - Ketoconazole shampoo given once - Patient refusing treatment 5. MORGAN- resolved - Nephrology consulted- recs appreciated - Renal US was unremarkable 6. Hx of Vertigo - Continue Meclizine 7. Vit D deficiency - Continue Vit D supplementation GI ppx: Pepcid DVT ppx: Heparin SC Case seen, reviewed and discussed with Dr. Barber
[2017-01-16 07:19] LABS: HEMATOCRIT 37.5 % (36.0-48.0); MEAN CELL VOLUME 91.5 fl (80.0-105.0); MEAN CORPUSCULAR HEMOGLOBIN 29.5 pg (25.0-35.0); MEAN CORPUSCULAR HGB CONC 32.3 g/dl (31.0-37.0); RED CELL DISTRIBUTION WIDTH 13.7 % (11.5-14.5)
[2017-01-16 08:00] LABS: ALB/GLOB RATIO 0.9 (1.1-1.8); ALKALINE PHOSPHATASE 82 U/L (38-126); ALT/SGPT 35 U/L (7-56); AST/SGOT 38 U/L (14-36); BILIRUBIN,TOTAL 0.4 mg/dL (0.2-1.3); BLOOD UREA NITROGEN 15 mg/dL (7-21); CALCIUM 8.8 mg/dL (8.4-10.5); CARBON DIOXIDE 27 mmol/L (21-33); CHLORIDE 103 mmol/L (98-107); GFR AFRICAN-AMERICAN > 60; GLUCOSE,RANDOM 116 mg/dL (70-110); POTASSIUM 4.6 mmol/L (3.6-5.0); SODIUM 139 mmol/L (132-148); TOTAL PROTEIN 7.2 g/dL (5.8-8.3)
[2017-01-16] MEDS: Vitamins A & D Oint UD Foilpak TOP SCH ×2 (10:30→17:13)
--- NOTE | 2017-01-16 16:05 | CP.PCM.PN ---
Subjective - Date & Time of Evaluation Date of Evaluation: 01/16/17 Time of Evaluation: 16:04 - Subjective Subjective: Nephrology Consultation: Assessment: Stable Acute Kidney Injury (N17.9): improved Hypertension vitamin d def CHF systolic, HTN (I12.9), obesity herpetic sores on lips non-obstructive CAD Plan No acute need for renal replacement therapy at this time. Hypertension control with meds as ordered. Patient not on ACEI/ARB : agree with cardiology initiating it considering her CHF. added lisinopril 20 mg/day Monitor Input/Output, daily weights and renal function with basic metabolic panel supplement with weekly vit D further management of CHF as per cardio Dose meds/antibiotics for improved GFR. Avoid fleets enema/magnesium based laxatives. Avoid nephrotoxins/NSAIDs/ iodinated contrast (unless needed emergently) Glycemic control Further work up/management as per primary team Thanks for allowing me to participate in care of your patient. Please call if any Qs. pt stable for d/c from renal perspective. Dr Henry Luevano Office: [phone] Chief Complaint; leg swelling HPI: Pt is a 61 F with hx of hypertension (many years), chronic severe systolic CHF, depression presented with complaints of leg pains and SOB x 1 week. renal consulted for elevated creatinine ROS: Denies chest pain, palpitation, c/o leg swelling and denies SOB had cardiac cath 01/11/17 Physical Examination: General Appearance: Comfortable, co-operative . obese Vitals reviewed and noted as below Head; Atraumatic, normocephalic ENT: no ulcers no thrush. Tongue is midline. Oropharynx: no rash or ulcers. has cold sores over lips EYES: Pupils are equal, round and reactive to light accommodation. Eye muscles and extraocular movement intact. Sclera is anicteric. Neck; supple no lymphadenopathy, no thyromegaly or bruit Lungs: Normal respiratory rate/effort. Breath sounds bilateral clear Heart: Normal rate. s1s2 normal. No rub or gallop. Extremities: 2+ edema. No varicose veins Neurological: Patient is alert, awake and oriented to person, place and time. No focal deficit. Strength bilateral appropriate and equal Skin: Warm and dry. Normal turgor. No rash. Palpitation: Normal elasticity for age Abdomen: Abdomen is soft. Bowel sounds +. There is no abdominal tenderness, no guarding/rigidity no organomegaly Psych: normal insight and normal affect/mood MSK: no joint tenderness or swelling. Digits and nails normal, no deformity : kidney or bladder not palpable Labs/imaging reviewed. Past medical history, past surgical history, family history, social history, allergy reviewed and noted as below Family hx: no hx of CKD. Rest non-contributory renal sono: unremarkable FeNa <1% Objective - Vital Signs/Intake and Output Vital Signs (last 24 hours): Temp Pulse Resp BP Pulse Ox 97.6 F 81 18 136/73 98 01/16/17 07:30 01/16/17 10:55 01/16/17 07:30 01/16/17 10:55 01/16/17 07:30 Intake and Output: 01/16/17 01/16/17 06:59 18:59 Intake Total 240 Balance 240 - Medications Medications: Current Medications Amitriptyline HCl (Elavil) 50 mg PO HS [facility] Last Admin: 01/15/17 22:08 Dose: 50 mg Aspirin (Ecotrin) 81 mg PO DAILY [facility] Last Admin: 01/16/17 10:55 Dose: 81 mg Benzocaine (Orajel Pm Maximum Strength) 0 gm MT QID PRN PRN Reason: Pain, Mild (1-3) Ergocalciferol (Drisdol 50,000 Intl Units Cap) 1 cap PO Q7D [facility] Last Admin: 01/11/17 17:46 Dose: 1 cap Famotidine (Pepcid) 40 mg PO HS [facility] Last Admin: 01/15/17 22:08 Dose: 40 mg Heparin Sodium (Porcine) (Heparin) 5,000 units SC Q12 [facility] PRN Reason: Protocol Last Admin: 01/16/17 10:54 Dose: 5,000 units Lisinopril (Zestril) 20 mg PO QPM [facility] Last Admin: 01/15/17 18:36 Dose: 20 mg Meclizine HCl (Antivert) 25 mg PO TID PRN PRN Reason: Dizziness Last Admin: 01/13/17 09:58 Dose: 25 mg Metoprolol Tartrate (Lopressor) 25 mg PO BID [facility] Last Admin: 01/16/17 10:55 Dose: 25 mg Vitamin A (Vitamin A & D Oint Ud Foilpak) 1 ea TOP BID [facility] Last Admin: 01/16/17 10:30 Dose: 1 ea - Labs Labs: 01/16/17 06:30 01/16/17 06:30 PT 15.1 SECONDS (9.4-12.5) H 01/09/17 15:30 INR 1.38 (0.93-1.08) H 01/09/17 15:30 APTT 72.5 Seconds (25.1-36.5) H 01/11/17 04:00
--- NOTE | 2017-01-16 16:16 | CP.PCM.PN ---
Subjective - Date & Time of Evaluation Date of Evaluation: 01/16/17 Time of Evaluation: 07:45 - Subjective Subjective: Patient seen and evaluated at bedside. No acute events overnight. Patient denies chest pain shortness of breath, abdominal pain, n/v/f/c. Patient continues with PT while in hopsital. Objective - Vital Signs/Intake and Output Vital Signs (last 24 hours): Temp Pulse Resp BP Pulse Ox 97.6 F 81 18 136/73 98 01/16/17 07:30 01/16/17 10:55 01/16/17 07:30 01/16/17 10:55 01/16/17 07:30 Intake and Output: 01/16/17 01/16/17 06:59 18:59 Intake Total 240 Balance 240 - Medications Medications: Current Medications Amitriptyline HCl (Elavil) 50 mg PO HS [facility] Last Admin: 01/15/17 22:08 Dose: 50 mg Aspirin (Ecotrin) 81 mg PO DAILY [facility] Last Admin: 01/16/17 10:55 Dose: 81 mg Benzocaine (Orajel Pm Maximum Strength) 0 gm MT QID PRN PRN Reason: Pain, Mild (1-3) Ergocalciferol (Drisdol 50,000 Intl Units Cap) 1 cap PO Q7D [facility] Last Admin: 01/11/17 17:46 Dose: 1 cap Famotidine (Pepcid) 40 mg PO HS [facility] Last Admin: 01/15/17 22:08 Dose: 40 mg Heparin Sodium (Porcine) (Heparin) 5,000 units SC Q12 [facility] PRN Reason: Protocol Last Admin: 01/16/17 10:54 Dose: 5,000 units Lisinopril (Zestril) 20 mg PO QPM [facility] Last Admin: 01/15/17 18:36 Dose: 20 mg Meclizine HCl (Antivert) 25 mg PO TID PRN PRN Reason: Dizziness Last Admin: 01/13/17 09:58 Dose: 25 mg Metoprolol Tartrate (Lopressor) 25 mg PO BID [facility] Last Admin: 01/16/17 10:55 Dose: 25 mg Vitamin A (Vitamin A & D Oint Ud Foilpak) 1 ea TOP BID [facility] Last Admin: 01/16/17 10:30 Dose: 1 ea - Labs Labs: 01/16/17 06:30 01/16/17 06:30 PT 15.1 SECONDS (9.4-12.5) H 01/09/17 15:30 INR 1.38 (0.93-1.08) H 01/09/17 15:30 APTT 72.5 Seconds (25.1-36.5) H 01/11/17 04:00 - Constitutional Appears: No Acute Distress - Head Exam Head Exam: ATRAUMATIC, NORMAL INSPECTION, NORMOCEPHALIC - Eye Exam Eye Exam: EOMI, PERRL - ENT Exam ENT Exam: Mucous Membranes Moist Additional comments: healing herpatic lesion - Neck Exam Neck Exam: Full ROM - Respiratory Exam Respiratory Exam: Clear to Ausculation Bilateral, NORMAL BREATHING PATTERN. absent: Rales, Rhonchi, Wheezes - Cardiovascular Exam Cardiovascular Exam: REGULAR RHYTHM, +S1, +S2 - GI/Abdominal Exam GI & Abdominal Exam: Soft, Normal Bowel Sounds. absent: Tenderness - Extremities Exam Extremities Exam: Pedal Edema (mild). absent: Calf Tenderness, Tenderness - Neurological Exam Neurological Exam: Alert, Awake, Normal Gait, Oriented x3 - Psychiatric Exam Psychiatric exam: Normal Affect, Normal Mood - Skin Skin Exam: Dry, Intact Additional comments: herpatic lesion on lips Assessment and Plan - Assessment and Plan (Free Text) Assessment: Patient is a 61yo female with past medical history of HTN and vertigo who came to ED with complaint of bilateral foot pain. She was found to have NSTEMI. She is s/p cardiac cath. Patient continues to work with physical therapy. Plan: 1. NSTEMI - Stress test on 05/2016 was equivocal with fixed anteroseptal defect - S/P cardiac cath with unremarkable coronaries - Cardiology consulted- recs appreciated - V/Q showed low probability for PE - echo showed EF of 33% severely impaired systolic dysfunction, with mod MR, mild pulm HTN - Continue ASA and Lopressor - Plavix d/c 2. Bilateral foot pain - improved - LE U/S negative - Xray of L and R foot negative - Continue Elavil 3. Herpetic lesion on mouth - Abreva not available in hospital- Recommend to start OTC Abreva as outpatient - Oragel prn and Topical Vit A&D ointment BID - treamtne showing clinical improvement 4. Scalp dermatitis - Ketoconazole shampoo given once - Patient refusing treatment 5. MORGAN- resolved - Nephrology consulted- recs appreciated - Renal US was unremarkable 6. Hx of Vertigo - Continue Meclizine 7. Vit D deficiency - Continue Vit D supplementation GI ppx: Pepcid DVT ppx: Heparin SC Case seen, reviewed and discussed with attending
[2017-01-16 16:31] VITALS: RESP 20
[2017-01-17 06:22] LABS: HEMATOCRIT 38.8 % (36.0-48.0); MEAN CELL VOLUME 91.5 fl (80.0-105.0); MEAN CORPUSCULAR HEMOGLOBIN 29.7 pg (25.0-35.0); MEAN CORPUSCULAR HGB CONC 32.5 g/dl (31.0-37.0); MEAN PLATELET VOLUME 9.1 fl (7.0-11.0); RED CELL DISTRIBUTION WIDTH 13.6 % (11.5-14.5); WHITE BLOOD COUNT 6.7 10^3/ul (4.5-11.0)
[2017-01-17 07:13] LABS: ALB/GLOB RATIO 0.9 (1.1-1.8); ALKALINE PHOSPHATASE 79 U/L (38-126); ALT/SGPT 32 U/L (7-56); AST/SGOT 36 U/L (14-36); BILIRUBIN,TOTAL 0.6 mg/dL (0.2-1.3); BLOOD UREA NITROGEN 16 mg/dL (7-21); CALCIUM 9.1 mg/dL (8.4-10.5); CARBON DIOXIDE 26 mmol/L (21-33); CHLORIDE 103 mmol/L (98-107); GFR AFRICAN-AMERICAN > 60; GLUCOSE,RANDOM 117 mg/dL (70-110); POTASSIUM 4.2 mmol/L (3.6-5.0); SODIUM 138 mmol/L (132-148)
--- NOTE | 2017-01-17 08:32 | PN ---
DATE: 01/17/2017 CARDIOLOGY FOLLOWUP NOTE SUBJECTIVE: The patient is in a chair without shortness of breath and without chest pain. PHYSICAL EXAMINATION: VITAL SIGNS: Blood pressure is 139/86 and the heart rate is in the 70s NECK: Negative JVD. LUNGS: Without rales. HEART: Reveals S1 and S2. EXTREMITIES: Without edema. LABORATORY DATA: BUN and creatinine are unremarkable. Hemoglobin is 12.6. IMPRESSION 1. Status post [id number] elevation myocardial infarction. 2. Unremarkable coronary arteries on catheterization. 3. Cardiomyopathy. 4. Anemia. 5. Improved renal function after hydration. PLAN: Given these findings, the patient is hemodynamically stable. We will continue her aspirin and beta-blockers. We will add statin therapy to her regimen. Gabino Terry MD
[2017-01-17 09:01] VITALS: BP 149/81; PULSE 85; TEMP 98.5; O2SAT 96
[2017-01-17] MEDS: Vitamins A & D Oint UD Foilpak TOP SCH (09:19)
--- NOTE | 2017-01-17 13:16 | CP.PCM.DIS ---
Provider - Provider Date of Admission: 01/09/17 16:59 Attending physician: Nathan Ornelas MD Primary care physician: Jean-Paul Barber MD Consults: Cardiology: Dr. Gabino Terry Nephrology: Dr. Henry Luevano Time Spent in preparation of Discharge (in minutes): 35 Diagnosis - Discharge Diagnosis (1) NSTEMI (non-ST elevated myocardial infarction) Status: Resolved (2) Physical deconditioning Status: Acute (3) Elevated troponin Status: Resolved (4) Renal failure Status: Resolved (5) Unable to ambulate Status: Resolved Hospital Course - Lab Results Lab Results: Micro Results 01/10/17 17:25 Urine,Clean Catch Urine Culture - Final No Growth (<1,000 CFU/ML) Most Recent Lab Values WBC 6.7 10^3/ul (4.5-11.0) 01/17/17 06:00 RBC 4.24 10^6/uL (3.5-6.1) 01/17/17 06:00 Hgb 12.6 g/dL (12.0-16.0) 01/17/17 06:00 Hct 38.8 % (36.0-48.0) 01/17/17 06:00 MCV 91.5 fl (80.0-105.0) 01/17/17 06:00 MCH 29.7 pg (25.0-35.0) 01/17/17 06:00 MCHC 32.5 g/dl (31.0-37.0) 01/17/17 06:00 RDW 13.6 % (11.5-14.5) 01/17/17 06:00 Plt Count 314 10^3/uL (120.0-450.0) 01/17/17 06:00 MPV 9.1 fl (7.0-11.0) 01/17/17 06:00 Gran % 44.6 % (50.0-68.0) L 01/14/17 06:45 Lymph % (Auto) 37.0 % (22.0-35.0) H 01/14/17 06:45 Woods % (Auto) 14.6 % (1.0-6.0) H 01/14/17 06:45 Eos % (Auto) 3.2 % (1.5-5.0) 01/14/17 06:45 Baso % (Auto) 0.6 % (0.0-3.0) 01/14/17 06:45 Gran # 2.23 (1.4-6.5) 01/14/17 06:45 Lymph # 1.9 (1.2-3.4) 01/14/17 06:45 Woods # 0.7 (0.1-0.6) H 01/14/17 06:45 Eos # 0.2 (0.0-0.7) 01/14/17 06:45 Baso # 0.03 K/mm3 (0.0-2.0) 01/14/17 06:45 PT 15.1 SECONDS (9.4-12.5) H 01/09/17 15:30 INR 1.38 (0.93-1.08) H 01/09/17 15:30 APTT 72.5 Seconds (25.1-36.5) H 01/11/17 04:00 Sodium 138 mmol/L (132-148) 01/17/17 06:00 Potassium 4.2 mmol/L (3.6-5.0) 01/17/17 06:00 Chloride 103 mmol/L (98-107) 01/17/17 06:00 Carbon Dioxide 26 mmol/L (21-33) 01/17/17 06:00 Anion Gap 14 (10-20) 01/17/17 06:00 BUN 16 mg/dL (7-21) 01/17/17 06:00 Creatinine 0.9 mg/dl (0.7-1.2) 01/17/17 06:00 Est GFR ( Amer) > 60 01/17/17 06:00 Est GFR (Non-Af Amer) > 60 01/17/17 06:00 Random Glucose 117 mg/dL (70-110) H 01/17/17 06:00 Calcium 9.1 mg/dL (8.4-10.5) 01/17/17 06:00 Phosphorus 3.4 mg/dL (2.5-4.5) 01/10/17 05:30 Magnesium 2.2 mg/dL (1.7-2.2) 01/10/17 05:30 Total Bilirubin 0.6 mg/dL (0.2-1.3) 01/17/17 06:00 AST 36 U/L (14-36) 01/17/17 06:00 ALT 32 U/L (7-56) 01/17/17 06:00 Alkaline Phosphatase 79 U/L (38-126) 01/17/17 06:00 Lactate Dehydrogenase 386 U/L (333-699) 01/11/17 04:00 Total Creatine Kinase 58 U/L (35-230) 01/11/17 04:00 Troponin I 0.41 ng/mL H* 01/12/17 13:10 NT-Pro-B Natriuret Pep 36687 pg/mL (0-450) H 01/10/17 07:50 Total Protein 7.0 g/dL (5.8-8.3) 01/17/17 06:00 Albumin 3.4 g/dL (3.0-4.8) 01/17/17 06:00 Globulin 3.6 gm/dL 01/17/17 06:00 Albumin/Globulin Ratio 0.9 (1.1-1.8) L 01/17/17 06:00 25-OH Vitamin D Total 17.9 NG/ML (30.0-100.0) L 01/10/17 09:00 PTH Intact Whole Molec 85 pg/mL (14-64) H 01/10/17 09:00 Urine Color Dark yellow (YELLOW) 01/10/17 09:23 Urine Appearance Sl cloudy (CLEAR) 01/10/17 09:23 Urine pH 6.0 (4.7-8.0) 01/10/17 09:23 Ur Specific [place] 1.020 (1.005-1.035) 01/10/17 09:23 Urine Protein 30 mg/dL (<30 mg/dL) H 01/10/17 09:23 Urine Glucose (UA) Negative mg/dL (NEGATIVE) 01/10/17 09:23 Urine Ketones Trace mg/dL (NEGATIVE) H 01/10/17 09:23 Urine Blood Small (NEGATIVE) H 01/10/17 09:23 Urine Nitrate Negative (NEGATIVE) 01/10/17 09:23 Urine Bilirubin Small (NEGATIVE) H 01/10/17 09:23 Urine Urobilinogen 2.0 E.U./dL (<1 E.U./dL) H 01/10/17 09:23 Ur Leukocyte Esterase Negative Sunil/uL (NEGATIVE) 01/10/17 09:23 Urine RBC 10 - 15 /hpf (0-2) 01/10/17 09:23 Urine WBC 1 - 3 /hpf (0-6) 01/10/17 09:23 Ur Epithelial Cells Many /hpf (0-5) 01/10/17 09:23 Amorphous Sediment Few 01/10/17 09:23 Urine Bacteria Many (NEG) 01/10/17 09:23 Coarse Granular Casts Trace /hpf (0-2) H 01/10/17 09:23 Urine Other Uyeast 01/10/17 09:23 Ur Random Creatinine 169 mg/dL 01/10/17 09:30 Ur Random Sodium 26 meq/L 01/10/17 09:30 - Hospital Course Hospital Course: 61 yo female ith PMH of HTN, vertigo presented with exertional sob, bilateral foot pain and difficulty ambulating for 6 hour history. In the ED basic lab work was done. Initial Troponin was 0.14 with some EKG changes including possible LBBB. No previous EKG available to compare with, Pt was placed on heparin drip, aspirin, statin, and metoprolol. Pt also had a MORGAN with Cr of 1.7. Cardiology and nephrology was consulted for recs. CXR showed no active disease. An extremity US was also done and was negative for any DVTs. X ray of foot was negative. Pt was sent to telemetry for cont monitoring. Following troponin was 0.06 cardiology recommended echo and continued monitoring. Echo was done and showed severely impaired systolic dys 33% with moderate MR and mild pulm HTN. Her acute kidney injury slowly resolved to within normal range. The following morning troponin increased to 0.17 and cardiology team recommended a cardiac cath which showed unremarkable coronary arteries. V/Q scan was done to rule out PE and was negative for PE. Pt was observed overnight and following morning her troponin was 0.45. Cardiology team was notified which stated elevated troponin was likely related to the cardiac cath. Cardiology placed patient on beta piedad, aspirin, and statin and okay for discharge with outpatient follow up. Nephrology evaluated the patient and reports stable for discharge. Patient stablized and has maintaned normothermia, normotensive. Physical therapy evaluated the patient with recommendations for sub acute rehab. Patient accepted to [facility] and discharged. Plan regarding follow up with PMD and Ob Tech outpatient, patient understanding and agreeable. - Date & Time of H&P Date of H&P: 01/09/17 Time of H&P: 22:19 Discharge Exam - Head Exam Head Exam: ATRAUMATIC, NORMAL INSPECTION, NORMOCEPHALIC - Eye Exam Eye Exam: EOMI, PERRL - ENT Exam ENT Exam: Mucous Membranes Moist Additional comments: healing herpatic lesion noted on lips - Neck Exam Neck exam: Full Rom - Respiratory Exam Respiratory Exam: NORMAL BREATHING PATTERN, UNREMARKABLE - Cardiovascular Exam Cardiovascular Exam: REGULAR RHYTHM, +S1, +S2 - GI/Abdominal Exam GI & Abdominal Exam: Normal Bowel Sounds - Back Exam Back exam: NORMAL INSPECTION. absent: paraspinal tenderness - Neurological Exam Neurological exam: Alert, Normal Gait, Oriented x3, Reflexes Normal Additional comments: able to follow commands and move all four extremities past midline - Psychiatric Exam Psychiatric exam: Normal Affect, Normal Mood - Skin Skin Exam: Dry, Intact Discharge Plan - Follow Up Plan Condition: SERIOUS Disposition: REHAB FACILITY/REHAB UNIT Additional Instructions: [facility] for rehab and strengthening Follow up with PMD upon discharge from [facility] Follow up with [facility] upon discharge from [facility] Take medications as prescribed to you Return to the hospital if your symptoms worsen or return Referrals: Jean-Paul Barber MD [Primary Care Provider] -
--- NOTE | 2017-01-17 16:15 | CP.PCM.PN ---
Subjective - Date & Time of Evaluation Date of Evaluation: 01/17/17 Time of Evaluation: 16:15 - Subjective Subjective: Follow up Nephrology Consultation: Assessment: Stable Acute Kidney Injury (N17.9): improved Hypertension vitamin d def CHF systolic, HTN (I12.9), obesity herpetic sores on lips non-obstructive CAD Plan No acute need for renal replacement therapy at this time. Hypertension control with meds as ordered. Patient not on ACEI/ARB : agree with cardiology initiating it considering her CHF. added lisinopril 20 mg/day Monitor Input/Output, daily weights and renal function with basic metabolic panel supplement with weekly vit D further management of CHF as per cardio Dose meds/antibiotics for improved GFR. Avoid fleets enema/magnesium based laxatives. Avoid nephrotoxins/NSAIDs/ iodinated contrast (unless needed emergently) Glycemic control Further work up/management as per primary team Thanks for allowing me to participate in care of your patient. Please call if any Qs. pt stable for d/c from renal perspective. Dr Henry Luevano Office: [phone] Chief Complaint; leg swelling HPI: Pt is a 61 F with hx of hypertension (many years), chronic severe systolic CHF, depression presented with complaints of leg pains and SOB x 1 week. renal consulted for elevated creatinine ROS: Denies chest pain, palpitation, c/o leg swelling and denies SOB had cardiac cath 01/11/17 Physical Examination: General Appearance: Comfortable, co-operative . obese Vitals reviewed and noted as below Head; Atraumatic, normocephalic ENT: no ulcers no thrush. Tongue is midline. Oropharynx: no rash or ulcers. has cold sores over lips EYES: Pupils are equal, round and reactive to light accommodation. Eye muscles and extraocular movement intact. Sclera is anicteric. Neck; supple no lymphadenopathy, no thyromegaly or bruit Lungs: Normal respiratory rate/effort. Breath sounds bilateral clear Heart: Normal rate. s1s2 normal. No rub or gallop. Extremities: 2+ edema. No varicose veins Neurological: Patient is alert, awake and oriented to person, place and time. No focal deficit. Strength bilateral appropriate and equal Skin: Warm and dry. Normal turgor. No rash. Palpitation: Normal elasticity for age Abdomen: Abdomen is soft. Bowel sounds +. There is no abdominal tenderness, no guarding/rigidity no organomegaly Psych: normal insight and normal affect/mood MSK: no joint tenderness or swelling. Digits and nails normal, no deformity : kidney or bladder not palpable Labs/imaging reviewed. Past medical history, past surgical history, family history, social history, allergy reviewed and noted as below Family hx: no hx of CKD. Rest non-contributory renal sono: unremarkable FeNa <1% Objective - Vital Signs/Intake and Output Vital Signs (last 24 hours): Temp Pulse Resp BP Pulse Ox 98.5 F 85 20 149/81 96 01/17/17 08:00 01/17/17 09:16 01/17/17 08:00 01/17/17 09:16 01/17/17 08:00 Intake and Output: 01/17/17 01/17/17 06:59 18:59 Intake Total 540 960 Balance 540 960 - Labs Labs: 01/17/17 06:00 01/17/17 06:00 PT 15.1 SECONDS (9.4-12.5) H 01/09/17 15:30 INR 1.38 (0.93-1.08) H 01/09/17 15:30 APTT 72.5 Seconds (25.1-36.5) H 01/11/17 04:00
== END 2017-01-17 15:26 | DRG 121 ==
LOC: ED 15:11 → ERH 16:59 → 2RSO 18:17 → 5RSO 01-13 13:45
PROVIDERS: ADMIT Internal Medicine; ATTEND Internal Medicine
PROC: 4A023N7 Measurement of Cardiac Sampling and Pressure, Left Heart, Percutaneous Approach (ICD-10-PCS; principal; 2017-01-11)
PROC: B2151ZZ Fluoroscopy of Left Heart using Low Osmolar Contrast (ICD-10-PCS; 2017-01-11)
PROC: B2111ZZ Fluoroscopy of Multiple Coronary Arteries using Low Osmolar Contrast (ICD-10-PCS; 2017-01-11)
DX: I21.4 Non-ST elevation (NSTEMI) myocardial infarction (principal); I50.22 Chronic systolic (congestive) heart failure; I13.0 Hypertensive heart and chronic kidney disease with heart failure and stage 1 through stage 4 chronic kidney disease, or unspecified chronic kidney disease; N17.9 Acute kidney failure, unspecified; N18.3 Chronic kidney disease, stage 3 (moderate); I42.9 Cardiomyopathy, unspecified; E11.22 Type 2 diabetes mellitus with diabetic chronic kidney disease; E86.0 Dehydration; E87.6 Hypokalemia; I25.10 Atherosclerotic heart disease of native coronary artery without angina pectoris; I27.20 Pulmonary hypertension, unspecified; R42 Dizziness and giddiness; M79.672 Pain in left foot; M79.671 Pain in right foot; E66.9 Obesity, unspecified; B00.1 Herpesviral vesicular dermatitis; E55.9 Vitamin D deficiency, unspecified; D64.9 Anemia, unspecified; L30.9 Dermatitis, unspecified; Z91.14 Patient's other noncompliance with medication regimen; Z68.42 Body mass index [BMI] 45.0-49.9, adult

== ENCOUNTER 2017-01-27 11:50 | Inpatient (IN) | payer MEDICAID ==
[2017-01-27 12:08] VITALS: BMI 43.9
[2017-01-27 12:56] LABS: BASO # 0.02 K/mm3 (0.0-2.0); BASO % 0.3 % (0.0-3.0); EOS # 0.2 (0.0-0.7); EOS % 3.7 % (1.5-5.0); GRAN # 3.87 (1.4-6.5); GRAN % 58.8 % (50.0-68.0); LYMPH # 1.9 (1.2-3.4); LYMPH % 28.8 % (22.0-35.0); MEAN CELL VOLUME 90.9 fl (80.0-105.0); MEAN CORPUSCULAR HEMOGLOBIN 31.1 pg (25.0-35.0); MEAN CORPUSCULAR HGB CONC 34.3 g/dl (31.0-37.0); MEAN PLATELET VOLUME 10.6 fl (7.0-11.0); MONO # 0.6 (0.1-0.6); MONO % 8.4 % (1.0-6.0); WHITE BLOOD COUNT 6.6 10^3/ul (4.5-11.0)
[2017-01-27 13:11] LABS: ALB/GLOB RATIO 1.1 (1.1-1.8); ALKALINE PHOSPHATASE 87 U/L (38-126); ALT/SGPT 32 U/L (7-56); AST/SGOT 27 U/L (14-36); BILIRUBIN,TOTAL 0.7 mg/dL (0.2-1.3); BLOOD UREA NITROGEN 14 mg/dL (7-21); CALCIUM 9.7 mg/dL (8.4-10.5); CARBON DIOXIDE 22 mmol/L (21-33); CHLORIDE 104 mmol/L (98-107); GFR AFRICAN-AMERICAN > 60; GLUCOSE,RANDOM 159 mg/dL (70-110); INR 1.14 (0.93-1.08); PARTIAL THROMBOPLASTIN TIME 32.9 Seconds (25.1-36.5); POTASSIUM 4.2 mmol/L (3.6-5.0); SODIUM 139 mmol/L (132-148); TOTAL PROTEIN 8.3 g/dL (5.8-8.3)
[2017-01-27] MEDS ORDERED: Iohexol 350 MG/100 ML VIAL ONE (14:10)
[2017-01-27] MEDS ORDERED: Vancomycin 1gm in NS 250ml 1 GM/250 ML BAG IVPB STA (15:00)
[2017-01-27] MEDS ORDERED: Piperacillin/Tazobact 3.375 gm 100 ML IVPB STA (15:01)
[2017-01-27] MEDS ORDERED: DiphenhydrAMINE 50 mg/ml Inj IVP STA (15:02)
[2017-01-27] MEDS ORDERED: Ergocalciferol 50,000 Intl Units Cap PO SCH (15:15)
--- NOTE | 2017-01-27 15:18 | ED PDOC ---
Arrival/HPI - General Chief Complaint: Abnormal Skin Integrity Time Seen by Provider: 01/27/17 12:16 Historian: Patient - History of Present Illness Narrative History of Present Illness (Text): 01/27/17 15:12 61yo female who present with complaint of worsening kristy orbital swelling/ redness and pain x 3days. States swelling started few days ago and was given topical opthic abx, but it became worse. Notes pain around her eyes. Denies visual changes, headache, fever, chills, nausea, vomiting, any other complaint. Past Medical History - Provider Review Nursing Documentation Reviewed: Yes - Infectious Disease Hx of Infectious Diseases: None - Reproductive Menopause: Yes - Cardiac Hx Cardiac Disorders: Yes Hx Hypertension: Yes - Neurological Hx Vertigo: Yes - Integumentary Hx Psoriasis: Yes (lower back dry red skin "psorisis" stated pt) Other/Comment: dry cracked skin to lips, dry skin both feet - Musculoskeletal/Rheumatological Hx Falls: No - Psychiatric Hx Psychophysiologic Disorder: (oobese) Hx Anxiety: Yes Hx Substance Use: No - Past Surgical History Past Surgical History: No Previous - Surgical History Hx Cardiac Catheterization: Yes Hx Tonsillectomy: Yes - Anesthesia Hx Anesthesia: Yes Hx Anesthesia Reactions: No Hx Malignant Hyperthermia: No Family/Social History - Physician Review Nursing Documentation Reviewed: Yes Family/Social History: Unknown Family HX Smoking Status: Never Smoked Hx Alcohol Use: No Hx Substance Use: No Hx Substance Use Treatment: No Allergies/Home Meds Allergies/Adverse Reactions: Allergies No Known Allergies Allergy (Verified 01/27/17 12:07) Home Medications: Home Meds Medication Instructions Recorded Confirmed Meclizine HCl [Motion Sickness 25 mg PO TID 05/25/16 01/27/17 Relief] Metoprolol Tartrate [Lopressor] 25 mg PO BID 05/25/16 01/27/17 Review of Systems - Physician Review All systems were reviewed & negative as marked: Yes - Review of Systems Constitutional: Normal Eyes: Normal ENT: Normal Respiratory: Normal Cardiovascular: Normal Gastrointestinal: Normal Genitourinary Female: Normal Musculoskeletal: Normal Skin: Cellulitis (B/L periorbital area) Neurological: Normal Endocrine: Normal Hemo/Lymphatic: Normal Psychiatric: Normal Physical Exam Vital Signs Reviewed: Yes Vital Signs Temp Pulse Resp BP Pulse Ox 01/27/17 15:51 79 18 149/89 98 01/27/17 11:57 98.6 F 93 H 18 131/79 97 Temperature: Afebrile Blood Pressure: Normal Pulse: Regular Respiratory Rate: Normal Appearance: Positive for: Well-Appearing, Non-Toxic, Comfortable Pain Distress: None Mental Status: Positive for: Alert and Oriented X 3 - Systems Exam Head: Present: Atraumatic, Normocephalic Pupils: Present: PERRL Extroacular Muscles: Present: EOMI, Other (Raised well demarcted area of erythema noted on b/l kristy orbital area.) Conjunctiva: Present: Normal Mouth: Present: Moist Mucous Membranes. No: Drooling Pharnyx: No: Strider Neck: Present: Normal Range of Motion Respiratory/Chest: Present: Clear to Auscultation, Good Air Exchange. No: Respiratory Distress, Accessory Muscle Use Cardiovascular: Present: Regular Rate and Rhythm, Normal S1, S2. No: Murmurs Abdomen: Present: Normal Bowel Sounds. No: Tenderness, Distention, Peritoneal Signs Back: Present: Normal Inspection Upper Extremity: Present: Normal Inspection. No: Cyanosis, Edema Lower Extremity: Present: Normal Inspection. No: Edema Neurological: Present: GCS=15, CN II-XII Intact, Speech Normal Skin: Present: Warm, Dry, Normal Color. No: Rashes Psychiatric: Present: Alert, Oriented x 3, Normal Insight, Normal Concentration Medical Decision Making ED Course and Treatment: 01/27/17 19:37 Pt presented for stated history. She was afebrile and hemodynamically stable in ED. She however have a impressive well raised demarcated erythema of her kristy orbital area. She was on topical abx. Lab was unremarkable. Maxillofacial CT - Sinus infection. No infection or collection noted in CT. Pt need IV abx and will be admitted for it. She was seen in ED by Dr. Osborn and he accepted admission Vanco and Zosyn was ordered blood culture pending. Solu medrol, Pepcid and benadryl also ordered to cover for allergic reaction. - Lab Interpretations Lab Results: 01/27/17 12:35 01/27/17 12:35 Lab Results 01/27/17 12:35: TSH 3rd Generation 3.39 01/27/17 12:35: Triglycerides 157, Cholesterol 126 L, LDL Cholesterol Direct 65 , HDL Cholesterol 33 01/27/17 12:35: PT 12.6 H, INR 1.14 H, APTT 32.9 01/27/17 12:35: Sodium 139, Potassium 4.2, Chloride 104, Carbon Dioxide 22, Anion Gap 17, BUN 14, Creatinine 1.0, Est GFR ( Amer) > 60, Est GFR (Non- Af Amer) 56, Random Glucose 159 H, Calcium 9.7, Total Bilirubin 0.7, AST 27, ALT 32, Alkaline Phosphatase 87, Total Protein 8.3, Albumin 4.3, Globulin 4.1, Albumin/Globulin Ratio 1.1 01/27/17 12:35: WBC 6.6, RBC 4.40, Hgb 13.7, Hct 40.0, MCV 90.9, MCH 31.1, MCHC 34.3, RDW 13.0, Plt Count 312, MPV 10.6, Gran % 58.8, Lymph % (Auto) 28.8, Charles % (Auto) 8.4 H, Eos % (Auto) 3.7, Baso % (Auto) 0.3, Gran # 3.87, Lymph # 1.9, Charles # 0.6, Eos # 0.2, Baso # 0.02 - RAD Interpretation Radiology Orders: 01/27/17 12:25 MAXILLOFACIAL W/CONTRAST [CT] Stat - Medication Orders Current Medication Orders: Amitriptyline HCl (Elavil) 50 mg PO HS [facility] Aspirin (Ecotrin) 81 mg PO DAILY [facility] Atorvastatin Calcium (Lipitor) 20 mg PO DIN [facility] Last Admin: 01/27/17 17:46 Dose: 20 mg Diphenhydramine HCl (Benadryl) 25 mg PO Q6 PRN PRN Reason: Itching / Pruritus Enoxaparin Sodium (Lovenox) 30 mg SC DAILY [facility] PRN Reason: Protocol Last Admin: 01/27/17 16:38 Dose: 30 mg Subcutaneous Administrations Document 01/27/17 16:38 LUCIAO (Rec: 01/27/17 16:38 EWO [id number]) Injection Site MAR Injection Site Left Abdomen Charges for Administration # of Subcutaneous Administrations 1 Ergocalciferol (Drisdol 50,000 Intl Units Cap) 1 cap PO Q7D [facility] Last Admin: 01/27/17 17:46 Dose: 1 cap Famotidine (Pepcid) 20 mg PO 1000,2200 [facility] Vancomycin HCl (Vancomycin 1gm) 1 gm in 250 mls @ 167 mls/hr IVPB Q12H [facility] PRN Reason: Protocol Lisinopril (Zestril) 20 mg PO QPM [facility] Last Admin: 01/27/17 17:46 Dose: 20 mg MAR Pulse and Blood Pressure Document 01/27/17 17:46 MD (Rec: 01/27/17 17:46 [facility] [id number] Pulse Pulse Rate (60-90) 79 Blood Pressure Blood Pressure (100/60-150/90) 149/89 Meclizine HCl (Antivert) 25 mg PO TID [facility] Last Admin: 01/27/17 17:46 Dose: 25 mg Methylprednisolone (Solu-Medrol) 40 mg IVP Q12 [facility] Metoprolol Tartrate (Lopressor) 25 mg PO BID [facility] Last Admin: 01/27/17 17:46 Dose: 25 mg MAR Pulse and Blood Pressure Document 01/27/17 17:46 MD (Rec: 01/27/17 17:47 [facility] [id number]) Pulse Pulse Rate (60-90) 79 Blood Pressure Blood Pressure (100/60-150/90) 149/89 Discontinued Medications Diphenhydramine HCl (Benadryl) 25 mg IVP STAT STA Stop: 01/27/17 15:03 Last Admin: 01/27/17 15:13 Dose: 25 mg IVP Administration Document 01/27/17 15:13 EWO (Rec: 01/27/17 15:13 EW [id number]) Charges for Administration # of IVP Administrations 1 Famotidine (Pepcid) 20 mg IVP STAT STA Stop: 01/27/17 15:03 Last Admin: 01/27/17 15:13 Dose: 20 mg IVP Administration Document 01/27/17 15:13 EWO (Rec: 01/27/17 15:13 EW [id number]) Charges for Administration # of IVP Administrations 1 Vancomycin HCl (Vancomycin 1gm) 1 gm in 250 mls @ 167 mls/hr IVPB STAT STA PRN Reason: Protocol Stop: 01/27/17 16:29 Last Admin: 01/27/17 16:37 Dose: 167 mls/hr eMAR Start Stop Document 01/27/17 16:37 EWO (Rec: 01/27/17 16:38 EWO [id number]) Intravenous Solution Start Date 01/27/17 Start Time 16:38 Piperacillin Sod/Tazobactam Sod (Zosyn 3.375 In Ns 100ml) 100 mls @ 200 mls/hr IVPB STAT STA PRN Reason: Protocol Stop: 01/27/17 15:30 Last Admin: 01/27/17 15:44 Dose: 200 mls/hr eMAR Start Stop Document 01/27/17 15:44 EWO (Rec: 01/27/17 15:45 EWO [id number]) Intravenous Solution Start Date 01/27/17 Start Time 15:45 End Date 01/27/17 End time 16:45 Total Infusion Time 60 Methylprednisolone (Solu-Medrol) 125 mg IVP STAT STA Stop: 01/27/17 15:03 Last Admin: 01/27/17 15:13 Dose: 125 mg IVP Administration Document 01/27/17 15:13 EWO (Rec: 01/27/17 15:13 LUCIA [id number]) Charges for Administration # of IVP Administrations 1 Pneumococcal Polyvalent Vaccine (Pneumovax 23 Vaccine) 0.5 ml IM .ONCE ONE Stop: 01/27/17 18:34 Disposition/Present on Arrival - Present on Arrival Any Indicators Present on Arrival: No History of DVT/PE: No History of Uncontrolled Diabetes: No Urinary Catheter: No History of Decub. Ulcer: No History Surgical Site Infection Following: None - Disposition Have Diagnosis and Disposition been Completed?: Yes Diagnosis: Erysipelas Disposition: HOSPITALIZED Disposition Time: 15:15 Patient Problems: Current Active Problems Problem Status Onset Erysipelas Acute Condition: FAIR
--- NOTE | 2017-01-27 15:34 | CP.PCM.HP ---
<Ricardo Blanco - Last Filed: 01/27/17 17:14> History of Present Illness - History of Present Illness History of Present Illness: CC: Rash 61 yo female with PMH of HTN, vertigo presents from [facility] to the ED with rash. Patient states that the rash is on her face, hand and under her breast. She first noticed it 3-4 days ago and it has gotten progressively worse. Pt states that she tried using a new soap / lotion that she received from the hospital 1 week ago. She also states that the person she shared a room with had something "catchy" but does not know what it was. She denies any fevers or chills. She does state that the rash is very itchy at time. 12 Point ROS was performed and negative other than stated above. PMH: HTN, vertigo PSH: tonsillectomy Allergy: egg Home meds: refer to [facility]: denies smoking, alcohol use, illicit drug use FH: mother and brother with heart disease Present on Admission - Present on Admission Any Indicators Present on Admission: Yes Review of Systems - Review of Systems All systems: reviewed and no additional remarkable complaints except Past Patient History - Infectious Disease Hx of Infectious Diseases: None - Past Social History Smoking Status: Never Smoked - CARDIAC Hx Cardiac Disorders: Yes Hx Hypertension: Yes - NEUROLOGICAL Hx Vertigo: Yes - INTEGUMENTARY Hx Psoriasis: Yes (lower back dry red skin "psorisis" stated pt) Other/Comment: dry cracked skin to lips, dry skin both feet - MUSCULOSKELETAL/RHEUMATOLOGICAL Hx Falls: No - PSYCHIATRIC Hx Psychophysiologic Disorder: (oobese) Hx Anxiety: Yes Hx Substance Use: No - SURGICAL HISTORY Hx Cardiac Catheterization: Yes Hx Tonsillectomy: Yes - ANESTHESIA Hx Anesthesia: Yes Hx Anesthesia Reactions: No Hx Malignant Hyperthermia: No Meds Allergies/Adverse Reactions: Allergies Allergy/AdvReac Type Severity Reaction Status Date / Time No Known Allergies Allergy Verified 01/27/17 12:07 Physical Exam - Constitutional Appears: No Acute Distress - Head Exam Head Exam: ATRAUMATIC, NORMOCEPHALIC - Eye Exam Eye Exam: EOMI, PERRL - ENT Exam ENT Exam: Mucous Membranes Moist - Respiratory Exam Respiratory Exam: Clear to Auscultation Bilateral. absent: Rales, Wheezes - Cardiovascular Exam Cardiovascular Exam: REGULAR RHYTHM, RRR, +S1, +S2 - GI/Abdominal Exam GI & Abdominal Exam: Normal Bowel Sounds, Soft. absent: Tenderness - Extremities Exam Extremities exam: Negative for: calf tenderness, pedal edema - Neurological Exam Neurological exam: Alert, CN II-XII Intact, Oriented x3 - Psychiatric Exam Psychiatric exam: Normal Affect, Normal Mood - Skin Skin Exam: Erythema Additional comments: Erythematous crusted rash on face Eryhematous rash on forearm and under the breast Results - Vital Signs Recent Vital Signs: Last Vital Signs Temp 98.6 F 01/27/17 11:57 Pulse 93 H 01/27/17 11:57 Resp 18 01/27/17 11:57 BP 131/79 01/27/17 11:57 Pulse Ox 97 01/27/17 11:57 - Labs Result Diagrams: 01/27/17 12:35 01/27/17 12:35 Labs: Laboratory Results - last 24 hr 01/27/17 01/27/17 01/27/17 12:35 12:35 12:35 WBC 6.6 RBC 4.40 Hgb 13.7 Hct 40.0 MCV 90.9 MCH 31.1 MCHC 34.3 RDW 13.0 Plt Count 312 MPV 10.6 Gran % 58.8 Lymph % (Auto) 28.8 Craven % (Auto) 8.4 H Eos % (Auto) 3.7 Baso % (Auto) 0.3 Gran # 3.87 Lymph # 1.9 Craven # 0.6 Eos # 0.2 Baso # 0.02 PT 12.6 H INR 1.14 H APTT 32.9 Sodium 139 Potassium 4.2 Chloride 104 Carbon Dioxide 22 Anion Gap 17 BUN 14 Creatinine 1.0 Est GFR ( Amer) > 60 Est GFR (Non-Af Amer) 56 Random Glucose 159 H Calcium 9.7 Total Bilirubin 0.7 AST 27 ALT 32 Alkaline Phosphatase 87 Total Protein 8.3 Albumin 4.3 Globulin 4.1 Albumin/Globulin Ratio 1.1 Assessment & Plan - Assessment and Plan (Free Text) Assessment: 61 yo female with PMH of HTN, vertigo presents from [facility] to the ED with rash (face, arms and under breast) x 3-4 days. 1. Rash: - Afebril; No leukocytosis - Benadryl, pepcid and Solumedrol x 1 given in the ED - Cont pepcid and benadryl prn - Vanc and Zosyn given in the ED - ID consult for recs - F/u daily labs - Cont vanc daily 2. HTN: - Cont home metoprolol and lisinopril - Cont home aspirin 3: HLD: - Cont home Lipitor 4. Hx of Vertigo - Cont homrMeclizine 5. GI/DVT ppx - Pepcid and Lovenox sc Plan was reviewed and discussed in detail with Dr Osborn. <Shivam Osborn - Last Filed: 01/28/17 08:58> Results - Vital Signs Recent Vital Signs: Last Vital Signs Temp 98.6 F 01/27/17 18:05 Pulse 79 01/27/17 18:05 Resp 18 01/27/17 18:05 BP 149/89 01/27/17 18:05 Pulse Ox 98 01/27/17 15:51 - Labs Result Diagrams: 01/28/17 06:00 01/28/17 06:00 Labs: Laboratory Results - last 24 hr 01/28/17 01/28/17 06:00 06:00 WBC 6.9 RBC 4.36 Hgb 13.1 Hct 38.9 MCV 89.2 MCH 30.0 MCHC 33.7 RDW 12.7 Plt Count 317 MPV 10.2 Gran % 79.9 H Lymph % (Auto) 16.6 L Craven % (Auto) 3.4 Eos % (Auto) 0.0 L Baso % (Auto) 0.1 Gran # 5.48 Lymph # 1.1 L Craven # 0.2 Eos # 0.0 Baso # 0.01 Sodium 138 Potassium 4.2 Chloride 105 Carbon Dioxide 21 Anion Gap 16 BUN 17 Creatinine 1.1 Est GFR ( Amer) > 60 Est GFR (Non-Af Amer) 50 Random Glucose 202 H Calcium 9.4 Total Bilirubin 0.6 AST 24 ALT 25 Alkaline Phosphatase 82 Total Protein 7.8 Albumin 4.0 Globulin 3.9 Albumin/Globulin Ratio 1.0 L Assessment & Plan - Assessment and Plan (Free Text) Plan: discussed w/ resident at length went over her hx meds labs tests xrays condition orders plans questions
--- NOTE | 2017-01-27 15:55 | CT ---
PROCEDURE: CT MAXILLOFACIAL BONES WITHOUT CONTRAST HISTORY: Facial swelling COMPARISON: None TECHNIQUE: Contiguous axial CT images of the maxillofacial bones were obtained. Coronal and sagittal reformats were generated. Radiation dose: Total exam DLP = 778 mGy-cm. This CT exam was performed using one or more of the following dose reduction techniques: Automated exposure control, adjustment of the mA and/or kV according to patient size, and/or use of iterative reconstruction technique. FINDINGS: NASAL BONES: Unremarkable. ORBITS: Unremarkable. PARANASAL SINUSES/ MASTOIDS: Clear. MAXILLA: There is severe mucosal thickening in the left maxillary sinus consistent with sinusitis. There is also opacification of several ethmoid air cells on the left. MANDIBLE/ TEMPOROMANDIBULAR JOINTS: Unremarkable. SKULL BASE: Unremarkable. TEMPORAL BONES: Middle ears and mastoid grossly unremarkable. OTHER FINDINGS: None. IMPRESSION: No evidence of fracture. Left-sided maxillary and ethmoid sinusitis.
[2017-01-27 16:04] LABS: CHOLESTEROL 126 mg/dL (130-200)
[2017-01-27] MEDS: Enoxaparin 30 mg Syringe SC SCH (16:38)
[2017-01-27] MEDS ORDERED: Pneumococcal 23-Valent Vaccine IM ONE (18:33)
[2017-01-27] MEDS ORDERED: Influenza Vaccine 60 mcg/0.5 mL SYR (4YR UP) IM ONE (18:33)
[2017-01-28] MEDS ORDERED: Pantoprazole 40 mg EC Tab PO SCH (06:00)
[2017-01-28 06:34] LABS: BASO # 0.01 K/mm3 (0.0-2.0); BASO % 0.1 % (0.0-3.0); GRAN # 5.48 (1.4-6.5); GRAN % 79.9 % (50.0-68.0); HEMATOCRIT 38.9 % (36.0-48.0); LYMPH # 1.1 (1.2-3.4); LYMPH % 16.6 % (22.0-35.0); MEAN CELL VOLUME 89.2 fl (80.0-105.0); MEAN CORPUSCULAR HGB CONC 33.7 g/dl (31.0-37.0); MEAN PLATELET VOLUME 10.2 fl (7.0-11.0); MONO # 0.2 (0.1-0.6); MONO % 3.4 % (1.0-6.0); RED CELL DISTRIBUTION WIDTH 12.7 % (11.5-14.5); WHITE BLOOD COUNT 6.9 10^3/ul (4.5-11.0)
[2017-01-28 06:43] LABS: ALKALINE PHOSPHATASE 82 U/L (38-126); ALT/SGPT 25 U/L (7-56); AST/SGOT 24 U/L (14-36); BILIRUBIN,TOTAL 0.6 mg/dL (0.2-1.3); BLOOD UREA NITROGEN 17 mg/dL (7-21); CALCIUM 9.4 mg/dL (8.4-10.5); CARBON DIOXIDE 21 mmol/L (21-33); CHLORIDE 105 mmol/L (98-107); GFR AFRICAN-AMERICAN > 60; GLUCOSE,RANDOM 202 mg/dL (70-110); POTASSIUM 4.2 mmol/L (3.6-5.0); SODIUM 138 mmol/L (132-148); TOTAL PROTEIN 7.8 g/dL (5.8-8.3)
[2017-01-28] MEDS ORDERED: Permethrin 5% Cream(60 gm) TOP ONE (07:58)
[2017-01-28] MEDS ORDERED: PERMETHRIN 1% TOP ONE (08:30)
[2017-01-28 09:12] VITALS: RESP 20
[2017-01-28] MEDS: Enoxaparin 30 mg Syringe SC SCH (09:40)
[2017-01-28] MEDS: MethylPREDNISolone 40 mg Vial IVP SCH ×2 (09:41→21:13)
[2017-01-28] MEDS ORDERED: Vancomycin 1gm in NS 250ml 1 GM/250 ML BAG IVPB SCH (10:00)
--- NOTE | 2017-01-28 11:10 | CP.PCM.PN ---
<Ricardo Blanco - Last Filed: 01/28/17 11:06> Subjective - Date & Time of Evaluation Date of Evaluation: 01/28/17 Time of Evaluation: 10:00 - Subjective Subjective: Medicine progress note: Pt seen and examined at bedside. No acute events overnight. Pt complains of periorbital swelling and redness. She also complains of itchiness on her hands and forarms. No other complaints. 12 Point ROS performed and negative other than stated above. Objective - Vital Signs/Intake and Output Vital Signs (last 24 hours): Temp Pulse Resp BP Pulse Ox 98.4 F 89 20 133/74 97 01/28/17 09:11 01/28/17 09:42 01/28/17 09:11 01/28/17 09:42 01/28/17 09:11 Intake and Output: 01/28/17 01/28/17 06:59 18:59 Intake Total 840 Balance 840 - Medications Medications: Current Medications Amitriptyline HCl (Elavil) 50 mg PO HS [facility] Last Admin: 01/27/17 21:08 Dose: 50 mg Aspirin (Ecotrin) 81 mg PO DAILY [facility] Last Admin: 01/28/17 09:41 Dose: 81 mg Atorvastatin Calcium (Lipitor) 20 mg PO DIN [facility] Last Admin: 01/27/17 17:46 Dose: 20 mg Diphenhydramine HCl (Benadryl) 25 mg PO Q6 PRN PRN Reason: Itching / Pruritus Enoxaparin Sodium (Lovenox) 30 mg SC DAILY [facility] PRN Reason: Protocol Last Admin: 01/28/17 09:40 Dose: 30 mg Ergocalciferol (Drisdol 50,000 Intl Units Cap) 1 cap PO Q7D [facility] Last Admin: 01/27/17 17:46 Dose: 1 cap Famotidine (Pepcid) 20 mg PO 1000,2200 [facility] Last Admin: 01/28/17 09:43 Dose: 20 mg Ceftaroline Fosamil 400 mg/ (Sodium Chloride) 100 mls @ 100 mls/hr IVPB Q12 [facility] PRN Reason: Protocol Last Admin: 01/28/17 10:22 Dose: 100 mls/hr Lisinopril (Zestril) 20 mg PO QPM [facility] Last Admin: 01/27/17 17:46 Dose: 20 mg Meclizine HCl (Antivert) 25 mg PO TID [facility] Last Admin: 01/28/17 09:41 Dose: 25 mg Methylprednisolone (Solu-Medrol) 40 mg IVP Q12 [facility] Last Admin: 01/28/17 09:41 Dose: 40 mg Metoprolol Tartrate (Lopressor) 25 mg PO BID [facility] Last Admin: 01/28/17 09:42 Dose: 25 mg - Labs Labs: 01/28/17 06:00 01/28/17 06:00 PT 12.6 SECONDS (9.4-12.5) H 01/27/17 12:35 INR 1.14 (0.93-1.08) H 01/27/17 12:35 APTT 32.9 Seconds (25.1-36.5) 01/27/17 12:35 - Constitutional Appears: No Acute Distress - Head Exam Head Exam: ATRAUMATIC, NORMOCEPHALIC - Eye Exam Eye Exam: EOMI, PERRL - ENT Exam ENT Exam: Mucous Membranes Moist - Respiratory Exam Respiratory Exam: Clear to Ausculation Bilateral. absent: Wheezes - Cardiovascular Exam Cardiovascular Exam: RRR, +S1, +S2 - GI/Abdominal Exam GI & Abdominal Exam: Soft. absent: Tenderness - Extremities Exam Extremities Exam: absent: Calf Tenderness, Pedal Edema - Neurological Exam Neurological Exam: Alert, Awake, Oriented x3 - Psychiatric Exam Psychiatric exam: Normal Affect, Normal Mood - Skin Skin Exam: Dry, Intact, Warm Assessment and Plan - Assessment and Plan (Free Text) Assessment: 61 yo female with PMH of HTN, vertigo presents from [facility] to the ED with rash likeley 2/2 to Erysipelas and scabies. 1. Periorbital rash - likely 2/2 Erysipelas - Afebrile; No leukocytosis - Benadryl, pepcid and Solumedrol x 1 given in the ED - CT maxillofacial showed - L sided maxillary and ethmoid sinusitis - Cont solumedrol 40mg Q12, pepcid and benadryl prn - ID consult for recs - started ceftaroline- d/maria l Vanc and Zosyn given in the ED - F/u daily labs 2. Rash on forearms likely 2/2 scabies - Permethrin cream and cream rinse - Isolation - contact 3. HTN: - Cont home metoprolol and lisinopril - Cont home aspirin 4: HLD: - Cont home Lipitor 5. Hx of Vertigo - Cont home Meclizine 6. GI/DVT ppx - Pepcid and Lovenox sc Plan was reviewed and discussed in detail with Dr Osborn. <Shivam Osborn - Last Filed: 01/29/17 07:44> Objective - Vital Signs/Intake and Output Vital Signs (last 24 hours): Temp Pulse Resp BP Pulse Ox 98.4 F 90 20 150/80 97 01/29/17 00:00 01/29/17 00:00 01/29/17 00:00 01/29/17 00:00 01/29/17 00:00 Intake and Output: 01/29/17 01/29/17 06:59 18:59 Intake Total 180 Balance 180 - Medications Medications: Current Medications Amitriptyline HCl (Elavil) 50 mg PO HS [facility] Last Admin: 01/28/17 21:13 Dose: 50 mg Aspirin (Ecotrin) 81 mg PO DAILY [facility] Last Admin: 01/28/17 09:41 Dose: 81 mg Atorvastatin Calcium (Lipitor) 20 mg PO DIN [facility] Last Admin: 01/28/17 17:34 Dose: 20 mg Diphenhydramine HCl (Benadryl) 25 mg PO Q6 PRN PRN Reason: Itching / Pruritus Enoxaparin Sodium (Lovenox) 30 mg SC DAILY [facility] PRN Reason: Protocol Last Admin: 01/28/17 09:40 Dose: 30 mg Ergocalciferol (Drisdol 50,000 Intl Units Cap) 1 cap PO Q7D [facility] Last Admin: 01/27/17 17:46 Dose: 1 cap Famotidine (Pepcid) 20 mg PO 1000,2200 [facility] Last Admin: 01/28/17 21:13 Dose: 20 mg Ceftaroline Fosamil 400 mg/ (Sodium Chloride) 100 mls @ 100 mls/hr IVPB Q12 [facility] PRN Reason: Protocol Last Admin: 01/28/17 21:12 Dose: 100 mls/hr Lisinopril (Zestril) 20 mg PO QPM [facility] Last Admin: 01/28/17 17:34 Dose: 20 mg Meclizine HCl (Antivert) 25 mg PO TID [facility] Last Admin: 01/28/17 17:34 Dose: 25 mg Methylprednisolone (Solu-Medrol) 40 mg IVP Q12 [facility] Last Admin: 01/28/17 21:13 Dose: 40 mg Metoprolol Tartrate (Lopressor) 25 mg PO BID [facility] Last Admin: 01/28/17 17:36 Dose: 25 mg - Labs Labs: 01/29/17 06:20 01/29/17 06:20 PT 12.6 SECONDS (9.4-12.5) H 01/27/17 12:35 INR 1.14 (0.93-1.08) H 01/27/17 12:35 APTT 32.9 Seconds (25.1-36.5) 01/27/17 12:35 Assessment and Plan - Assessment and Plan (Free Text) Plan: discussed w/ resident at length went over meds labs tests results xrays consults plans orders reviewed
--- NOTE | 2017-01-28 20:57 | CON ---
DATE: 01/28/2017 The patient is seen in room 561, bed 1. CHIEF COMPLAINT: Facial rash times several days. HISTORY OF PRESENT ILLNESS: This is a 61-year-old female with past medical history significant for hypertension, coronary artery disease, psoriasis, vertigo, who is admitted with facial swelling times several days. The patient states that she is not having any headaches. No fevers. No blurred vision. No chest pain. No abdominal pain, diarrhea or constipation. PAST MEDICAL HISTORY: Significant for hypertension, coronary artery disease, psoriasis and vertigo. PAST SURGICAL HISTORY: Significant for tonsillectomy and cardiac catheterization. ALLERGIES: THE PATIENT HAS NO KNOWN ALLERGIES. MEDICATIONS AT HOME: Include vitamin A, Lopressor, meclizine, Lipitor, aspirin PHYSICAL EXAMINATION: GENERAL/VITAL SIGNS: The patient is in bed with a temperature of 98, blood pressure of 140/80, respiratory rate of 20, heart rate of 93. HEENT: Unremarkable except for the erysipelas rash on her face. NECK: Supple. LUNGS: Clear. HEART: Exam normal S1, S2. ABDOMEN: Emanation is soft, nontender. SKIN: Examination of the skin, she has diffuse rash on her arms and parts of her chest and back which is pruritic, she states. LABORATORY EXAMINATION: Reveals white count of 6.6, hemoglobin of 13, platelets are noted 312. Coagulation is noted. Chemistries reveal a BUN of 17, creatinine of 1.1. The patient had a CAT scan of the maxillofacial which reveals sinusitis. Dr. Shivam Osborn's note is reviewed and review of the creatinine reveals the patient's creatinine 1.0, the patient has had a creatinine of up to 1.7 and GFR at this point is 50. ASSESSMENT AND PLAN: This is a 61-year-old female with hypertension, coronary artery disease, psoriasis, vertigo, hyperlipidemia, anxiety with, 1. Erysipelas with sinusitis, Strep and Staph aureus. Erysipelas of face requires MRSA therapy and the patient with scabies. Concerned about the use of vancomycin in this patient because of the creatinine of 1.7 in the last month and a GFR of 50, we will discontinue vancomycin and Zosyn and use Teflaro, treat the scabies as discussed with and isolate the patient for scabies for now until treatment is completed and we will also order a HIV test because of her age of 61; Because of her rash, we will order an RPR; although consistent with scabies rash because of severe itching, also order an FTA, sed rate and C-reactive protein. Case discussed with Dr. Shivam Osborn. We will follow closely with you. We will also order urinalysis because of the renal insufficiency. Ty Dawkins MD
[2017-01-29 07:09] LABS: GRAN # 7.57 (1.4-6.5); GRAN % 82.7 % (50.0-68.0); HEMATOCRIT 36.1 % (36.0-48.0); LYMPH # 1.3 (1.2-3.4); LYMPH % 13.6 % (22.0-35.0); MEAN CELL VOLUME 91.2 fl (80.0-105.0); MEAN CORPUSCULAR HEMOGLOBIN 29.5 pg (25.0-35.0); MEAN CORPUSCULAR HGB CONC 32.4 g/dl (31.0-37.0); MEAN PLATELET VOLUME 10.1 fl (7.0-11.0); MONO # 0.3 (0.1-0.6); MONO % 3.7 % (1.0-6.0); RED CELL DISTRIBUTION WIDTH 12.9 % (11.5-14.5); WHITE BLOOD COUNT 9.2 10^3/ul (4.5-11.0)
[2017-01-29 07:17] LABS: ALKALINE PHOSPHATASE 68 U/L (38-126); ALT/SGPT 26 U/L (7-56); AST/SGOT 19 U/L (14-36); BILIRUBIN,TOTAL 0.4 mg/dL (0.2-1.3); BLOOD UREA NITROGEN 25 mg/dL (7-21); CALCIUM 9.2 mg/dL (8.4-10.5); CARBON DIOXIDE 23 mmol/L (21-33); CHLORIDE 104 mmol/L (98-107); GFR AFRICAN-AMERICAN > 60; GLUCOSE,RANDOM 232 mg/dL (70-110); POTASSIUM 5.1 mmol/L (3.6-5.0); SODIUM 138 mmol/L (132-148); TOTAL PROTEIN 7.2 g/dL (5.8-8.3)
--- NOTE | 2017-01-29 09:32 | CP.PCM.PN ---
Subjective - Date & Time of Evaluation Date of Evaluation: 01/29/17 Time of Evaluation: 07:30 - Subjective Subjective: Patient was seen and examined at bedside. she is a poor historian, and states that her rash has improved but not significantly and that it gets itchy at times. she offers no other overnight complaints. she denies chest pain, palpitations, sob, swelling, n/v/d, fevers/chills, abdominal pain, changes in urine/bowel habits. Objective - Vital Signs/Intake and Output Vital Signs (last 24 hours): Temp Pulse Resp BP Pulse Ox 98.4 F 77 20 132/71 98 01/29/17 08:00 01/29/17 08:00 01/29/17 08:00 01/29/17 08:00 01/29/17 08:00 Intake and Output: 01/29/17 01/29/17 06:59 18:59 Intake Total 180 Balance 180 - Medications Medications: Current Medications Amitriptyline HCl (Elavil) 50 mg PO HS [facility] Last Admin: 01/28/17 21:13 Dose: 50 mg Aspirin (Ecotrin) 81 mg PO DAILY [facility] Last Admin: 01/28/17 09:41 Dose: 81 mg Atorvastatin Calcium (Lipitor) 20 mg PO DIN [facility] Last Admin: 01/28/17 17:34 Dose: 20 mg Diphenhydramine HCl (Benadryl) 25 mg PO Q6 PRN PRN Reason: Itching / Pruritus Enoxaparin Sodium (Lovenox) 30 mg SC DAILY [facility] PRN Reason: Protocol Last Admin: 01/28/17 09:40 Dose: 30 mg Ergocalciferol (Drisdol 50,000 Intl Units Cap) 1 cap PO Q7D [facility] Last Admin: 01/27/17 17:46 Dose: 1 cap Famotidine (Pepcid) 20 mg PO 1000,2200 [facility] Last Admin: 01/28/17 21:13 Dose: 20 mg Ceftaroline Fosamil 400 mg/ (Sodium Chloride) 100 mls @ 100 mls/hr IVPB Q12 [facility] PRN Reason: Protocol Last Admin: 01/28/17 21:12 Dose: 100 mls/hr Lisinopril (Zestril) 20 mg PO QPM [facility] Last Admin: 01/28/17 17:34 Dose: 20 mg Meclizine HCl (Antivert) 25 mg PO TID [facility] Last Admin: 01/28/17 17:34 Dose: 25 mg Methylprednisolone (Solu-Medrol) 40 mg IVP Q12 [facility] Last Admin: 01/28/17 21:13 Dose: 40 mg Metoprolol Tartrate (Lopressor) 25 mg PO BID [facility] Last Admin: 01/28/17 17:36 Dose: 25 mg - Labs Labs: 01/29/17 06:20 01/29/17 06:20 PT 12.6 SECONDS (9.4-12.5) H 01/27/17 12:35 INR 1.14 (0.93-1.08) H 01/27/17 12:35 APTT 32.9 Seconds (25.1-36.5) 01/27/17 12:35 - Constitutional Appears: Well, Non-toxic, No Acute Distress - Head Exam Head Exam: ATRAUMATIC, NORMOCEPHALIC - Eye Exam Eye Exam: EOMI, Normal appearance, PERRL - ENT Exam ENT Exam: Mucous Membranes Moist, Normal Exam - Neck Exam Neck Exam: Full ROM - Respiratory Exam Respiratory Exam: Clear to Ausculation Bilateral, NORMAL BREATHING PATTERN. absent: Rales, Rhonchi, Wheezes - Cardiovascular Exam Cardiovascular Exam: RRR, +S1, +S2. absent: JVD - GI/Abdominal Exam GI & Abdominal Exam: Soft. absent: Distended, Tenderness Additional comments: obese body habitus - Extremities Exam Extremities Exam: Full ROM - Back Exam Back Exam: NORMAL INSPECTION - Neurological Exam Neurological Exam: Alert, Awake, Oriented x3 - Psychiatric Exam Psychiatric exam: Normal Affect, Normal Mood - Skin Skin Exam: Normal Color, Warm Additional comments: multiple small maculopapular rash over anterior forearms diffuse erythema noted over L AC region diffuse erythema noted over posterior neck Assessment and Plan - Assessment and Plan (Free Text) Assessment: 61 yo female with PMH of HTN and vertigo who presented from [facility] with multiple rashes likely 2/2 to erysipelas and scabies Plan: 1. Periorbital rash - likely 2/2 Erysipelas - Afebrile; No leukocytosis - CT maxillofacial showed - L sided maxillary and ethmoid sinusitis - cont ceftaroline d2 - Benadryl PRN - cont titrating solumedrol 40mg Q12H - HIV, RPR were negative - ESR and CRP elevated - blood and urine cultures negative x48hrs 2. Rash on forearms likely 2/2 scabies - Permethrin cream and cream rinse - Isolation - contact - ID consulted, recs appreciated 3. HTN: - currently well controlled - Cont home metoprolol and lisinopril - Cont home aspirin 4: HLD: - Cont home Lipitor 5. Hx of Vertigo - Cont home Meclizine 6. GI/DVT ppx - Pepcid and Lovenox sc Dispo: SW consulted, as pt's home may not be ready for her to be discharged home yet Patient was seen, examined and discussed with attending, Dr. Elisabeth Acevedo PGY1 Pager # [phone]
[2017-01-29] MEDS: Enoxaparin 30 mg Syringe SC SCH (09:45)
[2017-01-29] MEDS: MethylPREDNISolone 40 mg Vial IVP SCH ×2 (09:47→21:55)
[2017-01-29 09:59] LABS: URINE BILIRUBIN NEGATIVE (NEGATIVE); URINE BLOOD NEGATIVE (NEGATIVE); URINE GLUCOSE (UA) NEGATIVE (NEGATIVE); URINE KETONE NEGATIVE (NEGATIVE); URINE LEUKOCYTE ESTERASE NEGATIVE Leu/uL (NEGATIVE); URINE PROTEIN NEGATIVE mg/dL (<30 mg/dL); URINE UROBILINOGEN 0.2 E.U./dL (<1 E.U./dL)
[2017-01-29 10:00] LABS: URINE APPEARANCE CLEAR (CLEAR); URINE COLOR YELLOW (YELLOW)
[2017-01-30 04:11] VITALS: PULSE 72; O2SAT 98
[2017-01-30 07:21] LABS: GRAN # 5.86 (1.4-6.5); GRAN % 77.5 % (50.0-68.0); HEMATOCRIT 38.5 % (36.0-48.0); LYMPH # 1.4 (1.2-3.4); LYMPH % 18.5 % (22.0-35.0); MEAN CELL VOLUME 90.2 fl (80.0-105.0); MEAN CORPUSCULAR HEMOGLOBIN 29.7 pg (25.0-35.0); MEAN PLATELET VOLUME 10.2 fl (7.0-11.0); MONO # 0.3 (0.1-0.6); RED CELL DISTRIBUTION WIDTH 12.9 % (11.5-14.5); WHITE BLOOD COUNT 7.6 10^3/ul (4.5-11.0)
[2017-01-30 07:23] VITALS: BP 134/74; TEMP 98.2
[2017-01-30 07:24] LABS: ALKALINE PHOSPHATASE 72 U/L (38-126); ALT/SGPT 23 U/L (7-56); AST/SGOT 17 U/L (14-36); BILIRUBIN,TOTAL 0.5 mg/dL (0.2-1.3); BLOOD UREA NITROGEN 23 mg/dL (7-21); CALCIUM 9.2 mg/dL (8.4-10.5); CARBON DIOXIDE 22 mmol/L (21-33); CHLORIDE 106 mmol/L (98-107); GFR AFRICAN-AMERICAN > 60; GLUCOSE,RANDOM 213 mg/dL (70-110); POTASSIUM 4.9 mmol/L (3.6-5.0); SODIUM 137 mmol/L (132-148); TOTAL PROTEIN 7.3 g/dL (5.8-8.3)
[2017-01-30] MEDS: Enoxaparin 30 mg Syringe SC SCH (09:57)
[2017-01-30] MEDS ORDERED: MethylPREDNISolone 40 mg Vial IVP SCH (10:00)
--- NOTE | 2017-01-30 17:25 | CP.PCM.DIS ---
Provider - Provider Date of Admission: 01/27/17 15:14 Attending physician: Nathan Ornelsa MD Primary care physician: Jean-Paul Barber MD Time Spent in preparation of Discharge (in minutes): 45 Diagnosis - Discharge Diagnosis (1) Sinusitis Status: Acute (2) Erysipelas Status: Acute (3) Scabies Status: Acute (4) HTN (hypertension) Status: Chronic (5) CAD (coronary artery disease) Status: Chronic (6) Vertigo Status: Chronic Hospital Course - Lab Results Lab Results: Micro Results 01/29/17 09:50 Urine Urine Culture - Final No Growth (<1,000 CFU/ML) 01/27/17 16:50 Urine,Clean Catch Urine Culture - Final No Growth (<1,000 CFU/ML) Most Recent Lab Values WBC 7.6 10^3/ul (4.5-11.0) 01/30/17 06:45 RBC 4.27 10^6/uL (3.5-6.1) 01/30/17 06:45 Hgb 12.7 g/dL (12.0-16.0) 01/30/17 06:45 Hct 38.5 % (36.0-48.0) 01/30/17 06:45 MCV 90.2 fl (80.0-105.0) 01/30/17 06:45 MCH 29.7 pg (25.0-35.0) 01/30/17 06:45 MCHC 33.0 g/dl (31.0-37.0) 01/30/17 06:45 RDW 12.9 % (11.5-14.5) 01/30/17 06:45 Plt Count 267 10^3/uL (120.0-450.0) 01/30/17 06:45 MPV 10.2 fl (7.0-11.0) 01/30/17 06:45 Gran % 77.5 % (50.0-68.0) H 01/30/17 06:45 Lymph % (Auto) 18.5 % (22.0-35.0) L 01/30/17 06:45 Ross % (Auto) 4.0 % (1.0-6.0) 01/30/17 06:45 Eos % (Auto) 0.0 % (1.5-5.0) L 01/30/17 06:45 Baso % (Auto) 0.0 % (0.0-3.0) 01/30/17 06:45 Gran # 5.86 (1.4-6.5) 01/30/17 06:45 Lymph # 1.4 (1.2-3.4) 01/30/17 06:45 Ross # 0.3 (0.1-0.6) 01/30/17 06:45 Eos # 0.0 (0.0-0.7) 01/30/17 06:45 Baso # 0.00 K/mm3 (0.0-2.0) 01/30/17 06:45 ESR 105 mm/hr (0.0-20.0) H 01/28/17 06:00 PT 12.6 SECONDS (9.4-12.5) H 01/27/17 12:35 INR 1.14 (0.93-1.08) H 01/27/17 12:35 APTT 32.9 Seconds (25.1-36.5) 01/27/17 12:35 Sodium 137 mmol/L (132-148) 01/30/17 06:45 Potassium 4.9 mmol/L (3.6-5.0) 01/30/17 06:45 Chloride 106 mmol/L (98-107) 01/30/17 06:45 Carbon Dioxide 22 mmol/L (21-33) 01/30/17 06:45 Anion Gap 14 (10-20) 01/30/17 06:45 BUN 23 mg/dL (7-21) H 01/30/17 06:45 Creatinine 1.0 mg/dl (0.7-1.2) 01/30/17 06:45 Est GFR ( Amer) > 60 01/30/17 06:45 Est GFR (Non-Af Amer) 56 01/30/17 06:45 Random Glucose 213 mg/dL (70-110) H 01/30/17 06:45 Hemoglobin A1c 6.6 % (4.2-6.5) H 01/27/17 12:35 Calcium 9.2 mg/dL (8.4-10.5) 01/30/17 06:45 Total Bilirubin 0.5 mg/dL (0.2-1.3) 01/30/17 06:45 AST 17 U/L (14-36) 01/30/17 06:45 ALT 23 U/L (7-56) 01/30/17 06:45 Alkaline Phosphatase 72 U/L (38-126) 01/30/17 06:45 C-React Prot High Sens > 15.00 mg/L (1.00-3.00) H 01/28/17 10:24 Total Protein 7.3 g/dL (5.8-8.3) 01/30/17 06:45 Albumin 3.7 g/dL (3.0-4.8) 01/30/17 06:45 Globulin 3.6 gm/dL 01/30/17 06:45 Albumin/Globulin Ratio 1.0 (1.1-1.8) L 01/30/17 06:45 Triglycerides 157 mg/dL (35-160) 01/27/17 12:35 Cholesterol 126 mg/dL (130-200) L 01/27/17 12:35 LDL Cholesterol Direct 65 mg/dL (0-129) 01/27/17 12:35 HDL Cholesterol 33 mg/dL (29-60) 01/27/17 12:35 TSH 3rd Generation 3.39 mIU/mL (0.46-4.68) 01/27/17 12:35 Urine Color Yellow (YELLOW) 01/29/17 09:50 Urine Appearance Clear (CLEAR) 01/29/17 09:50 Urine pH 6.0 (4.7-8.0) 01/29/17 09:50 Ur Specific [place] 1.025 (1.005-1.035) 01/29/17 09:50 Urine Protein Negative mg/dL (<30 mg/dL) 01/29/17 09:50 Urine Glucose (UA) Negative mg/dL (NEGATIVE) 01/29/17 09:50 Urine Ketones Negative mg/dL (NEGATIVE) 01/29/17 09:50 Urine Blood Negative (NEGATIVE) 01/29/17 09:50 Urine Nitrate Negative (NEGATIVE) 01/29/17 09:50 Urine Bilirubin Negative (NEGATIVE) 01/29/17 09:50 Urine Urobilinogen 0.2 E.U./dL (<1 E.U./dL) 01/29/17 09:50 Ur Leukocyte Esterase Negative Sunil/uL (NEGATIVE) 01/29/17 09:50 RPR Nonreactive (NONREACTIVE) 01/28/17 07:30 T.pallidum Ab (FTA-ABS) Nonreactive (Nonreactive) 01/28/17 10:24 HIV 1&2 Ag/Ab, 4th Gen Nonreactive (Nonreactive) 01/28/17 10:24 - Hospital Course Hospital Course: Ms. Galarza is a 61 yo female with PMH of HTN, CAD, psoriasis, developmental delay and vertigo who presented from [facility] to the ED with a diffuse erythematous rash around the eyes and chest/breast, and multiple maculopapules on her arms consistent with scabies. Patient admits to using a new soap / lotion that she received from the hospital 1 week ago. She also states that the person she shared a room with had something "catchy" but does not know what it was. The rash is itchy and diffuse. Patient was transferred to [facility] floors for monitoring. Old chart was reviewed. Maxillofacial CT showed CT maxillofacial showed L sided maxillary and ethmoid sinusitis. The patient had no pain or difficult with ocular movements, and remained afebrile with no leukocytosis during the length of her stay. ID was consulted. The patient was placed on contact precautions and treated for scabies. HIV, and syphilis tests were negative. UA was clean. Blood and urine cultures were negative. The patient was treated with IV ceftaroline and Benadryl and she showed improvement. HTN, CAD and vertigo also managed. was requested for discharge planning. The patient is being discharged on Augmentin and Doxycycline and will follow up with Dr. Barber within 1 week. The plan was discussed with the patient and the brother, Nathan, who are both fully understanding. All their questions were answered. The patient is optimized for discharge. - Date & Time of H&P Date of H&P: 01/27/17 Time of H&P: 15:25 Discharge Exam - Head Exam Head Exam: ATRAUMATIC, NORMOCEPHALIC - Eye Exam Eye Exam: EOMI, Normal appearance, PERRL Pupil Exam: NORMAL ACCOMODATION Additional comments: kristy-orbital erythema b/l - ENT Exam ENT Exam: Mucous Membranes Moist, Normal Exam, Normal External Ear Exam - Neck Exam Additional comments: posterior neck erythematous rash - Respiratory Exam Respiratory Exam: Clear to PA & Lateral, NORMAL BREATHING PATTERN. absent: Rales, Rhonchi, Wheezes - Cardiovascular Exam Cardiovascular Exam: RRR, +S1, +S2 - GI/Abdominal Exam GI & Abdominal Exam: Normal Bowel Sounds, Soft. absent: Distended, Tenderness - Extremities Exam Extremities exam: pedal pulses present Additional comments: b/l anterior forearms w/ multiple small macular papules that are itchy, consistent with scabies - Back Exam Back exam: NORMAL INSPECTION - Neurological Exam Neurological exam: Alert, Oriented x3 - Psychiatric Exam Psychiatric exam: Normal Affect, Normal Mood - Skin Skin Exam: Normal Color, Warm Discharge Plan - Discharge Medications Prescriptions: Amoxicillin/Clavulanate [Augmentin 875 MG-125 MG] 1 tab PO BID #20 tab Doxycycline Hyclate 100 mg PO BID #20 capsule - Follow Up Plan Condition: FAIR Disposition: HOME/ ROUTINE Instructions: Pneumococcal Vaccine for Adults (DC), Cellulitis (DC), Cellulitis (GEN), Influenza Vaccine (DC), Chronic Hypertension (DC), Acute Rash (DC), Fall Prevention (DC) Additional Instructions: - Please take the two antibiotics (Augmentin and Doxycycline) as prescribed - Please continue your home medications as prescribed - Please followup with Dr. Barber within 1 week - If you experience new itching, rash or fevers, please return to ED for evaluation Referrals: Jean-Paul Barber MD [Primary Care Provider] -
--- NOTE | 2017-01-30 18:10 | PN ---
DATE: 01/30/2017 SUBJECTIVE: The patient is in bed, in no acute distress, nontoxic. No fevers and chills. OBJECTIVE: VITAL SIGNS: On exam, temperature is 98, blood pressure is 120/70, respiratory rate of 16. HEENT: Unremarkable. NECK: Supple. LUNGS: Have decreased breath sounds. HEART: Normal S1, S2. ABDOMEN: Soft, nontender. LABORATORY EXAMINATION: Reveals a white count of 7.6, hemoglobin of 12. Sed rate is 105. Chemistries are noted, and urinalysis is noted, serology is noted, and microbiology reveals the blood cultures are negative, urine cultures are negative. ASSESSMENT AND PLAN: A 61-year-old female with erysipelas with sinusitis, and this morning, the facial erythema is completely resolved, maybe able to switch to p.o. doxycycline and p.o. Augmentin. The urine cultures are still pending. Upon discharge with switch to p.o. doxycycline and p.o. Augmentin, the patient is still on Solu-Medrol and Teflaro with great improvement. Ty Dawkins MD
== END 2017-01-30 16:22 | disposition home or self-care (01) | DRG 278 ==
LOC: ED 11:50 → ERH 15:14 → 5RNO 16:54
PROVIDERS: ADMIT Internal Medicine; ATTEND Internal Medicine
DX: A46 Erysipelas (principal); B86 Scabies; I10 Essential (primary) hypertension; I25.10 Atherosclerotic heart disease of native coronary artery without angina pectoris; E78.5 Hyperlipidemia, unspecified; J32.0 Chronic maxillary sinusitis; J32.2 Chronic ethmoidal sinusitis; R42 Dizziness and giddiness